=== PATIENT | female | born 1940 | race Caucasian/White ===

== ENCOUNTER 2022-09-23 03:36 | Inpatient (IN) | payer MEDICARE, BC, SELFPAY ==
[2022-09-23] VITALS (54 sets, daily range): BP systolic 103–149; BP diastolic 53–80; PULSE 61–85; RESP 12–36; TEMP 36.9; O2SAT 81–97; BMI 22.4
--- NOTE | 2022-09-23 03:45 | DI.RAD.S_ITS ---
PROCEDURE: XR CHEST 1V INDICATIONS: hypoxia TECHNIQUE: One view of the chest was acquired. COMPARISON: None. FINDINGS: Surgical changes and devices: None. Lungs and pleura: There is pulmonary vascular congestion. Extensive airspace opacities throughout bilateral lung solorzano are seen. No significant pleural effusion or pneumothorax. Mediastinum: Tortuous thoracic aorta is noted. Heart size is enlarged. Bones and chest wall: No suspicious bony lesions. Overlying soft tissues appear unremarkable. IMPRESSION: Finding is suggestive of CHF. Superimposed bilateral multilobar infiltrates cannot be excluded. No significant pleural effusion. No pneumothorax. Dictated by: Chato Chairez M.D. on 09/23/2022 at 9:04 Approved by: Chato Chairez M.D. on 09/23/2022 at 9:04
--- NOTE | 2022-09-23 03:46 | ED_ITS ---
HPI - Altered Mental Status <Merline Reinier, DO - Last Filed: 09/25/22 03:44> General Chief Complaint: Syncope Stated Complaint: unresponsive Time Seen by Provider: 09/23/22 03:45 History of Present Illness HPI narrative: Patient is a 81-year-old female history of stage 4 chronic kidney disease, coronary artery disease, insulin-dependent diabetes presenting today with decreasing mental status and unresponsiveness. Apparently she was started on Bactrim by her son for a UTI last week. She is had some upset stomach a little bit of nausea generally not feeling well. This evening found her heard her get up to go to the bathroom she quickly became unresponsive difficulty breathing EMS reports low O2 but other vitals were normal. She with oxygen she slowly became more awake alert and appropriate. She is currently 85% on room air. She really does not have any complaints. No numbness tingling weakness no chest pain Related Data Home Medications Medication Instructions Recorded Confirmed Imodium 2 mg PO QD-BID 09/23/22 09/23/22 Systane Ultra 1 drp EYE-BOTH TID 09/23/22 09/24/22 amitriptyline 25 mg tablet 50 mg PO ONCE PM 09/23/22 09/23/22 amlodipine 10 mg tablet 10 mg PO DAILY 09/23/22 09/23/22 aspirin 81 mg chewable tablet 81 mg PO DAILY 09/23/22 09/23/22 atorvastatin 80 mg tablet 80 mg PO ONCE PM 09/23/22 09/23/22 brimonidine 0.2 %-timolol 0.5 % 1 drp EYE-RIGHT BID 09/23/22 09/23/22 eye drops clopidogrel 75 mg tablet 75 mg PO DAILY 09/23/22 09/23/22 furosemide 40 mg tablet 40 mg PO Q2D 09/23/22 09/23/22 latanoprost 0.005 % eye drops 1 drp EYE-RIGHT QPM 09/23/22 09/23/22 levothyroxine 75 mcg tablet 75 mcg PO DAILY 09/23/22 09/23/22 melatonin 5 mg tablet 5 mg PO BEDTIME PRN Insomnia 09/23/22 09/23/22 metoprolol succinate 50 mg 50 mg PO BID 09/23/22 09/23/22 tablet,extended release 24 hr Allergies Allergy/AdvReac Type Severity Reaction Status Date / Time ampicillin Allergy Intermediate Hives Verified 09/24/22 05:57 Review of Systems <Merline Hlils DO - Last Filed: 09/25/22 03:44> Review of Systems ROS Unobtainable: All systems reviewed & are unremarkable except as noted in HPI and below Patient History <Merline Hills DO - Last Filed: 09/25/22 03:44> Medical History CAD (coronary artery disease) 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 RESPIRATORY: Coarse breath sounds bilaterally ABDOMEN: Soft, nontender. Normoactive bowel sounds all 4 quadrants. No guarding or rebound. EXTREMITIES: Normal range of motion, no clubbing or edema. Neurovascularly intact NEUROLOGICAL: Alert and oriented x4.Normal gait and speech. Cranial nerves II through XII grossly intact. SKIN: Warm, dry, no laceration, no petechiae, no rashes or lesions. <Shilpa Whitehead MD - Last Filed: 10/12/22 21:50> Initial Vital Signs Initial Vital Signs: Vital Signs Pulse Rate 81 09/23/22 03:42 Pulse Oximetry 85 L 09/23/22 03:42 <Delores Perkins DO - Last Filed: 09/24/22 18:48> Initial Vital Signs Initial Vital Signs: Vital Signs Pulse Rate 81 09/23/22 03:42 Pulse Oximetry 85 L 09/23/22 03:42 Course <Merline Hills DO - Last Filed: 09/25/22 03:44> Orders Ordered: Discontinued Medications Acetaminophen (Acetaminophen 325 Mg Tablet) 650 mg PO NOW ONE Stop: 09/23/22 05:42 Last Admin: 09/23/22 05:47 Dose: 650 mg Documented By: GC Acetaminophen (Acetaminophen 325 Mg Tablet) 650 mg PO Q6H PRN PRN Reason: Fever/Mild Pain (1-3) Amitriptyline HCl (Amitriptyline 25 Mg Tablet) 50 mg PO BEDTIME [facility] Last Admin: 09/24/22 20:13 Dose: 50 mg Documented By: MS Aspirin (Aspirin Ec 81 Mg Tablet) 81 mg PO DAILY [facility] Last Admin: 09/24/22 08:59 Dose: 81 mg Documented By: RB Aspirin (Aspirin 81 Mg Chew Tab) 81 mg PO DAILY [facility] Last Admin: 09/25/22 08:43 Dose: 81 mg Documented By: BT Atorvastatin Calcium (Atorvastatin 20 Mg Tablet) 40 mg PO BEDTIME [facility] Atorvastatin Calcium (Atorvastatin 20 Mg Tablet) 80 mg PO BEDTIME [facility] Last Admin: 09/24/22 20:12 Dose: 80 mg Documented By: MS Brimonidine Tartrate (Brimonidine 0.2% Ophth 5 Ml) 1 drops EYE-RIGHT BID [facility] Last Admin: 09/25/22 08:44 Dose: Not Given Documented By: Admin: 09/24/22 20:14 Dose: 1 drops Documented By: MS Clopidogrel Bisulfate (Clopidogrel 75 Mg Tablet) 75 mg PO DAILY [facility] Last Admin: 09/25/22 08:43 Dose: 75 mg Documented By: Admin: 09/24/22 08:59 Dose: 75 mg Documented By: RB Diphenhydramine HCl (Diphenhydramine 50 Mg/Ml Vial) 25 mg IV NOW ONE Stop: 09/24/22 02:37 Last Admin: 09/24/22 03:29 Dose: 25 mg Documented By: JENELLE Enoxaparin Sodium (Enoxaparin 30 Mg/0.3 Ml Syringe) 30 mg SUBCUT DAILY [facility] Last Admin: 09/25/22 08:44 Dose: Not Given Documented By: BT Furosemide (Furosemide 40 Mg/4 Ml Vial) 40 mg IV 0800,1700 [facility] Last Admin: 09/25/22 08:44 Dose: 40 mg Documented By: Admin: 09/24/22 16:03 Dose: 40 mg Documented By: BT Heparin Sodium (Porcine) (Heparin 5,000 Unit/Ml Vial) 5,000 unit SUBCUT BID [facility] Last Admin: 09/24/22 08:59 Dose: 5,000 unit Documented By: RB Furosemide 60 mg/ Sodium (Chloride) 56 mls @ 112 mls/hr IV NOW ONE Stop: 09/23/22 05:09 Last Infusion: 09/23/22 06:17 Dose: 0 mls/hr Documented By: Admin: 09/23/22 05:34 Dose: 112 mls/hr Documented By: GC Furosemide 60 mg/ Sodium (Chloride) 56 mls @ 112 mls/hr IV NOW ONE Stop: 09/23/22 12:02 Last Infusion: 09/23/22 14:10 Dose: 0 mls/hr Documented By: Admin: 09/23/22 13:22 Dose: 112 mls/hr Documented By: KEYSHA Dextrose (D10w) 1,000 mls @ 100 mls/hr IV CONT PRN PRN Reason: Hypoglycemia Furosemide 100 mg/ Sodium (Chloride) 60 mls @ 120 mls/hr IV NOW ONE Stop: 09/23/22 14:39 Last Infusion: 09/23/22 15:35 Dose: 0 mls/hr Documented By: Admin: 09/23/22 14:57 Dose: 120 mls/hr Documented By: KEYSHA Dextrose (D10w) 1,000 mls @ 100 mls/hr IV CONT PRN PRN Reason: Hypoglycemia Insulin Human Lispro (Insulin Pump) 1 request MISC 0600,1800 [facility] Last Admin: 09/25/22 06:14 Dose: 1 request Documented By: Co-signed By: LUCY Admin: 09/24/22 18:26 Dose: 1 request Documented By: RAQUEL Co-signed By: MARIANGEL Latanoprost (Latanoprost 0.005% Ophth 2.5 Ml) 1 drops EYE-RIGHT BEDTIME [facility] Last Admin: 09/24/22 20:15 Dose: Not Given Documented By: Admin: 09/23/22 21:17 Dose: 1 drops Documented By: KEYSHA Levothyroxine Sodium (Levothyroxine 75 Mcg Tablet) 75 mcg PO DAILY@0600 [facility] Last Admin: 09/25/22 06:19 Dose: 75 mcg Documented By: Admin: 09/24/22 06:25 Dose: 75 mcg Documented By: CHRISTIANO Melatonin (Melatonin 3 Mg Tablet) 3 mg PO BEDTIME [facility] Last Admin: 09/24/22 20:13 Dose: 3 mg Documented By: Admin: 09/23/22 21:17 Dose: 3 mg Documented By: KEYSHA Metoprolol Succinate (Metoprolol Er 50 Mg Tablet) 50 mg PO BID [facility] Last Admin: 09/25/22 08:43 Dose: 50 mg Documented By: Admin: 09/24/22 20:13 Dose: Not Given Documented By: MS Naloxone HCl (Naloxone 0.4 Mg/Ml Vial) 0.2 mg IV Q2MIN PRN PRN Reason: Opiate Reversal Ondansetron HCl (Ondansetron 4 Mg/2 Ml Inj) 4 mg IV Q8H PRN PRN Reason: Nausea And Vomiting Timolol Maleate (Timolol 0.5% Ophth) 1 drops EYE-RIGHT BID [facility] Last Admin: 09/25/22 08:45 Dose: Not Given Documented By: Admin: 09/24/22 20:13 Dose: 1 % Documented By: Vital Signs Vital signs: Vital Signs - 8 hr 09/24/22 11:00 Pulse Rate 86 Respiratory Rate 20 Pulse Oximetry 98 <Shilpa Whitehead MD - Last Filed: 10/12/22 21:50> Orders Ordered: Discontinued Medications Acetaminophen (Acetaminophen 325 Mg Tablet) 650 mg PO NOW ONE Stop: 09/23/22 05:42 Last Admin: 09/23/22 05:47 Dose: 650 mg Documented By: GATO Acetaminophen (Acetaminophen 325 Mg Tablet) 650 mg PO Q6H PRN PRN Reason: Fever/Mild Pain (1-3) Amitriptyline HCl (Amitriptyline 25 Mg Tablet) 50 mg PO BEDTIME [facility] Last Admin: 09/24/22 20:13 Dose: 50 mg Documented By: MS Aspirin (Aspirin Ec 81 Mg Tablet) 81 mg PO DAILY [facility] Last Admin: 09/24/22 08:59 Dose: 81 mg Documented By: RB Aspirin (Aspirin 81 Mg Chew Tab) 81 mg PO DAILY [facility] Last Admin: 09/25/22 08:43 Dose: 81 mg Documented By: RAQUEL Atorvastatin Calcium (Atorvastatin 20 Mg Tablet) 40 mg PO BEDTIME [facility] Atorvastatin Calcium (Atorvastatin 20 Mg Tablet) 80 mg PO BEDTIME [facility] Last Admin: 09/24/22 20:12 Dose: 80 mg Documented By: MS Brimonidine Tartrate (Brimonidine 0.2% Ophth 5 Ml) 1 drops EYE-RIGHT BID [facility] Last Admin: 09/25/22 08:44 Dose: Not Given Documented By: Admin: 09/24/22 20:14 Dose: 1 drops Documented By: MS Clopidogrel Bisulfate (Clopidogrel 75 Mg Tablet) 75 mg PO DAILY [facility] Last Admin: 09/25/22 08:43 Dose: 75 mg Documented By: Admin: 09/24/22 08:59 Dose: 75 mg Documented By: RB Diphenhydramine HCl (Diphenhydramine 50 Mg/Ml Vial) 25 mg IV NOW ONE Stop: 09/24/22 02:37 Last Admin: 09/24/22 03:29 Dose: 25 mg Documented By: JENELLE Enoxaparin Sodium (Enoxaparin 30 Mg/0.3 Ml Syringe) 30 mg SUBCUT DAILY [facility] Last Admin: 09/25/22 08:44 Dose: Not Given Documented By: BT Furosemide (Furosemide 40 Mg/4 Ml Vial) 40 mg IV 0800,1700 [facility] Last Admin: 09/25/22 08:44 Dose: 40 mg Documented By: Admin: 09/24/22 16:03 Dose: 40 mg Documented By: BT Heparin Sodium (Porcine) (Heparin 5,000 Unit/Ml Vial) 5,000 unit SUBCUT BID [facility] Last Admin: 09/24/22 08:59 Dose: 5,000 unit Documented By: RB Furosemide 60 mg/ Sodium (Chloride) 56 mls @ 112 mls/hr IV NOW ONE Stop: 09/23/22 05:09 Last Infusion: 09/23/22 06:17 Dose: 0 mls/hr Documented By: Admin: 09/23/22 05:34 Dose: 112 mls/hr Documented By: GC Furosemide 60 mg/ Sodium (Chloride) 56 mls @ 112 mls/hr IV NOW ONE Stop: 09/23/22 12:02 Last Infusion: 09/23/22 14:10 Dose: 0 mls/hr Documented By: Admin: 09/23/22 13:22 Dose: 112 mls/hr Documented By: KEYSHA Dextrose (D10w) 1,000 mls @ 100 mls/hr IV CONT PRN PRN Reason: Hypoglycemia Furosemide 100 mg/ Sodium (Chloride) 60 mls @ 120 mls/hr IV NOW ONE Stop: 09/23/22 14:39 Last Infusion: 09/23/22 15:35 Dose: 0 mls/hr Documented By: Admin: 09/23/22 14:57 Dose: 120 mls/hr Documented By: KEYSHA Dextrose (D10w) 1,000 mls @ 100 mls/hr IV CONT PRN PRN Reason: Hypoglycemia Insulin Human Lispro (Insulin Pump) 1 request MISC 0600,1800 [facility] Last Admin: 09/25/22 06:14 Dose: 1 request Documented By: Co-signed By: LUCY Admin: 09/24/22 18:26 Dose: 1 request Documented By: RAQUEL Co-signed By: MARIANGEL Latanoprost (Latanoprost 0.005% Ophth 2.5 Ml) 1 drops EYE-RIGHT BEDTIME [facility] Last Admin: 09/24/22 20:15 Dose: Not Given Documented By: Admin: 09/23/22 21:17 Dose: 1 drops Documented By: KEYSHA Levothyroxine Sodium (Levothyroxine 75 Mcg Tablet) 75 mcg PO DAILY@0600 [facility] Last Admin: 09/25/22 06:19 Dose: 75 mcg Documented By: Admin: 09/24/22 06:25 Dose: 75 mcg Documented By: CHRISTIANO Melatonin (Melatonin 3 Mg Tablet) 3 mg PO BEDTIME [facility] Last Admin: 09/24/22 20:13 Dose: 3 mg Documented By: Admin: 09/23/22 21:17 Dose: 3 mg Documented By: KEYSHA Metoprolol Succinate (Metoprolol Er 50 Mg Tablet) 50 mg PO BID [facility] Last Admin: 09/25/22 08:43 Dose: 50 mg Documented By: Admin: 09/24/22 20:13 Dose: Not Given Documented By: Naloxone HCl (Naloxone 0.4 Mg/Ml Vial) 0.2 mg IV Q2MIN PRN PRN Reason: Opiate Reversal Ondansetron HCl (Ondansetron 4 Mg/2 Ml Inj) 4 mg IV Q8H PRN PRN Reason: Nausea And Vomiting Timolol Maleate (Timolol 0.5% Ophth) 1 drops EYE-RIGHT BID [facility] Last Admin: 09/25/22 08:45 Dose: Not Given Documented By: Admin: 09/24/22 20:13 Dose: 1 % Documented By: MS Vital Signs Vital signs: Vital Signs - 8 hr 09/24/22 11:00 Pulse Rate 86 Respiratory Rate 20 Pulse Oximetry 98 <Delores Perkins, - Last Filed: 09/24/22 18:48> Orders Ordered: Discontinued Medications Acetaminophen (Acetaminophen 325 Mg Tablet) 650 mg PO NOW ONE Stop: 09/23/22 05:42 Last Admin: 09/23/22 05:47 Dose: 650 mg Documented By: GC Acetaminophen (Acetaminophen 325 Mg Tablet) 650 mg PO Q6H PRN PRN Reason: Fever/Mild Pain (1-3) Amitriptyline HCl (Amitriptyline 25 Mg Tablet) 50 mg PO BEDTIME [facility] Last Admin: 09/24/22 20:13 Dose: 50 mg Documented By: MS Aspirin (Aspirin Ec 81 Mg Tablet) 81 mg PO DAILY [facility] Last Admin: 09/24/22 08:59 Dose: 81 mg Documented By: RB Aspirin (Aspirin 81 Mg Chew Tab) 81 mg PO DAILY [facility] Last Admin: 09/25/22 08:43 Dose: 81 mg Documented By: BT Atorvastatin Calcium (Atorvastatin 20 Mg Tablet) 40 mg PO BEDTIME [facility] Atorvastatin Calcium (Atorvastatin 20 Mg Tablet) 80 mg PO BEDTIME [facility] Last Admin: 09/24/22 20:12 Dose: 80 mg Documented By: MS Brimonidine Tartrate (Brimonidine 0.2% Ophth 5 Ml) 1 drops EYE-RIGHT BID [facility] Last Admin: 09/25/22 08:44 Dose: Not Given Documented By: Admin: 09/24/22 20:14 Dose: 1 drops Documented By: MS Clopidogrel Bisulfate (Clopidogrel 75 Mg Tablet) 75 mg PO DAILY [facility] Last Admin: 09/25/22 08:43 Dose: 75 mg Documented By: Admin: 09/24/22 08:59 Dose: 75 mg Documented By: RB Diphenhydramine HCl (Diphenhydramine 50 Mg/Ml Vial) 25 mg IV NOW ONE Stop: 09/24/22 02:37 Last Admin: 09/24/22 03:29 Dose: 25 mg Documented By: HNG Enoxaparin Sodium (Enoxaparin 30 Mg/0.3 Ml Syringe) 30 mg SUBCUT DAILY [facility] Last Admin: 09/25/22 08:44 Dose: Not Given Documented By: BT Furosemide (Furosemide 40 Mg/4 Ml Vial) 40 mg IV 0800,1700 [facility] Last Admin: 09/25/22 08:44 Dose: 40 mg Documented By: Admin: 09/24/22 16:03 Dose: 40 mg Documented By: BT Heparin Sodium (Porcine) (Heparin 5,000 Unit/Ml Vial) 5,000 unit SUBCUT BID [facility] Last Admin: 09/24/22 08:59 Dose: 5,000 unit Documented By: RB Furosemide 60 mg/ Sodium (Chloride) 56 mls @ 112 mls/hr IV NOW ONE Stop: 09/23/22 05:09 Last Infusion: 09/23/22 06:17 Dose: 0 mls/hr Documented By: Admin: 09/23/22 05:34 Dose: 112 mls/hr Documented By: GC Furosemide 60 mg/ Sodium (Chloride) 56 mls @ 112 mls/hr IV NOW ONE Stop: 09/23/22 12:02 Last Infusion: 09/23/22 14:10 Dose: 0 mls/hr Documented By: Admin: 09/23/22 13:22 Dose: 112 mls/hr Documented By: KEYSHA Dextrose (D10w) 1,000 mls @ 100 mls/hr IV CONT PRN PRN Reason: Hypoglycemia Furosemide 100 mg/ Sodium (Chloride) 60 mls @ 120 mls/hr IV NOW ONE Stop: 09/23/22 14:39 Last Infusion: 09/23/22 15:35 Dose: 0 mls/hr Documented By: Admin: 09/23/22 14:57 Dose: 120 mls/hr Documented By: KEYSHA Dextrose (D10w) 1,000 mls @ 100 mls/hr IV CONT PRN PRN Reason: Hypoglycemia Insulin Human Lispro (Insulin Pump) 1 request MISC 0600,1800 [facility] Last Admin: 09/25/22 06:14 Dose: 1 request Documented By: MS Co-signed By: VH Admin: 09/24/22 18:26 Dose: 1 request Documented By: RAQUEL Co-signed By: MARIANGEL Latanoprost (Latanoprost 0.005% Ophth 2.5 Ml) 1 drops EYE-RIGHT BEDTIME [facility] Last Admin: 09/24/22 20:15 Dose: Not Given Documented By: Admin: 09/23/22 21:17 Dose: 1 drops Documented By: KEYSHA Levothyroxine Sodium (Levothyroxine 75 Mcg Tablet) 75 mcg PO DAILY@0600 [facility] Last Admin: 09/25/22 06:19 Dose: 75 mcg Documented By: Admin: 09/24/22 06:25 Dose: 75 mcg Documented By: CHRISTIANO Melatonin (Melatonin 3 Mg Tablet) 3 mg PO BEDTIME [facility] Last Admin: 09/24/22 20:13 Dose: 3 mg Documented By: Admin: 09/23/22 21:17 Dose: 3 mg Documented By: KEYSHA Metoprolol Succinate (Metoprolol Er 50 Mg Tablet) 50 mg PO BID [facility] Last Admin: 09/25/22 08:43 Dose: 50 mg Documented By: Admin: 09/24/22 20:13 Dose: Not Given Documented By: Naloxone HCl (Naloxone 0.4 Mg/Ml Vial) 0.2 mg IV Q2MIN PRN PRN Reason: Opiate Reversal Ondansetron HCl (Ondansetron 4 Mg/2 Ml Inj) 4 mg IV Q8H PRN PRN Reason: Nausea And Vomiting Timolol Maleate (Timolol 0.5% Ophth) 1 drops EYE-RIGHT BID [facility] Last Admin: 09/25/22 08:45 Dose: Not Given Documented By: Admin: 09/24/22 20:13 Dose: 1 % Documented By: Vital Signs Vital signs: Vital Signs - 8 hr 09/24/22 11:00 Pulse Rate 86 Respiratory Rate 20 Pulse Oximetry 98 MDM - Altered Mental Status <Merline Hills, DO - Last Filed: 09/25/22 03:44> Lab Data 09/25/22 06:20 09/25/22 06:20 Labs: Lab Results 09/23/22 09/23/22 09/23/22 Range/Units 03:50 03:50 03:50 WBC 8.7 (4.5-11.0) X10^3/uL RBC 2.76 L (4.0-5.2) X10^6/uL Hgb 9.3 L (12.0-16.0) g/dL Hct 26.1 L (36-46) % MCV 94.4 (80-100) fL MCH 33.8 (26-34) PG MCHC 35.8 (30-36) % RDW 12.3 (11.6-14.8) % Plt Count 208 (150-400) X10^3/uL Neut % (Auto) 78.8 H (50-75) % Lymph % (Auto) 9.1 L (25-40) % [place] % (Auto) 10.3 (3-14) % Eos % (Auto) 1.4 L (2-4) % Baso % (Auto) 0.4 (0-2) % Neut # (Auto) 6800 (7706-7886) /uL Lymph # (Auto) 800 L (6573-6614) /uL [place] # (Auto) 900 (0-900) /uL Eos # (Auto) 100 (0-450) /uL Baso # (Auto) 0 (0-100) /uL PT 13.4 H (10.1-12.7) SECONDS INR 1.2 (0.9-1.3) APTT (26-36) SECONDS D-Dimer (<500) ng/ml ABG pH (7.35-7.45) ABG pCO2 (35-45) mmHg ABG pO2 (80-100) mmHg ABG HCO3 (23-27) mmol/L ABG Total CO2 (23-27) mmol/L ABG O2 Saturation (95-100) % ABG Base Excess (-2-3) mmol/L FiO2 Sodium 131 L (137-145) mmol/L Potassium 4.7 (3.4-5.1) mmol/L Chloride 101 (98-107) mmol/L Carbon Dioxide 19 L (22-32) mmol/L BUN 49 H (7-17) mg/dL Creatinine 4.15 H (0.52-1.04) mg/dL Estimated GFR 10 L (>60) mL/min BUN/Creatinine Ratio 11.8 (6-22) Glucose 152 H (80-110) mg/dL Lactate (0.7-2.1) mmol/L Calcium 8.5 (8.4-10.2) mg/dL Magnesium (1.6-2.3) mg/dL Total Bilirubin 0.6 (0.2-1.3) mg/dL AST 37 H (14-36) IU/L ALT 25 (<35) IU/L Alkaline Phosphatase 138 H (38-126) U/L Total Creatine Kinase 113 (30-135) U/L Troponin I 0.018 (0.01-0.034) ng/mL NT-Pro-B Natriuret Pep 8590 H (<450) pg/mL Total Protein 6.5 (6.3-8.2) g/dL Albumin 3.8 (3.5-5.0) g/dL Globulin 2.7 (1.7-4.1) g/dL Albumin/Globulin Ratio 1.4 (1.0-2.8) Procalcitonin 0.15 (<0.5) ng/mL Urine Color Urine Appearance Urine pH (4.5-8.0) Ur Specific [place] (1.000-1.035) Urine Protein (Negative) Urine Glucose (UA) (Negative) g/dL Urine Ketones (NEGATIVE) Urine Occult Blood (Negative) Urine Nitrate (Negative) Urine Bilirubin (NEGATIVE) Urine Urobilinogen (0.2) E.U./dL Ur Leukocyte Esterase (NEGATIVE) Urine RBC (0-5/HPF) Urine WBC (0-5/HPF) Ur Squamous Epith Cells (0-5/HPF) Urine Bacteria (None) Ur Culture Indicated? Chlamy pneumoniae PCR (Not Detect) Adenovirus (PCR) (Not Detect) B. pertussis DNA (PCR) (Not Detecte) B.parapertussis DNA PCR (Not Detecte) Coronavirus OC43 (PCR) (Not Detect) Coronavirus HKU1 (PCR) (Not Detect) Coronavirus 229E (PCR) (Not Detect) SARS-CoV-2 (PCR) (Not Detecte) Coronavirus NL63 (PCR) (Not Detect) Human Metapneumovir PCR (Not Detect) Influenza Type A (PCR) (Not Detect) Influenza Type B (PCR) (Not Detect) M. pneumoniae (PCR) (Not Detect) Parainfluenza 1 (PCR) (Not Detect) Parainfluenza 2 (PCR) (Not Detect) Parainfluenza 3 (PCR) (Not Detect) Parainfluenza 4 (PCR) (Not Detect) RSV (PCR) (Not Detect) Entero/Rhino (PCR) (Not Detect) 09/23/22 09/23/22 09/23/22 Range/Units 03:50 03:50 03:50 WBC (4.5-11.0) X10^3/uL RBC (4.0-5.2) X10^6/uL Hgb (12.0-16.0) g/dL Hct (36-46) % MCV (80-100) fL MCH (26-34) PG MCHC (30-36) % RDW (11.6-14.8) % Plt Count (150-400) X10^3/uL Neut % (Auto) (50-75) % Lymph % (Auto) (25-40) % [place] % (Auto) (3-14) % Eos % (Auto) (2-4) % Baso % (Auto) (0-2) % Neut # (Auto) (1465-9431) /uL Lymph # (Auto) (8917-3450) /uL [place] # (Auto) (0-900) /uL Eos # (Auto) (0-450) /uL Baso # (Auto) (0-100) /uL PT (10.1-12.7) SECONDS INR (0.9-1.3) APTT 32 (26-36) SECONDS D-Dimer 1062 H (<500) ng/ml ABG pH (7.35-7.45) ABG pCO2 (35-45) mmHg ABG pO2 (80-100) mmHg ABG HCO3 (23-27) mmol/L ABG Total CO2 (23-27) mmol/L ABG O2 Saturation (95-100) % ABG Base Excess (-2-3) mmol/L FiO2 Sodium (137-145) mmol/L Potassium (3.4-5.1) mmol/L Chloride (98-107) mmol/L Carbon Dioxide (22-32) mmol/L BUN (7-17) mg/dL Creatinine (0.52-1.04) mg/dL Estimated GFR (>60) mL/min BUN/Creatinine Ratio (6-22) Glucose (80-110) mg/dL Lactate 1.2 (0.7-2.1) mmol/L Calcium (8.4-10.2) mg/dL Magnesium (1.6-2.3) mg/dL Total Bilirubin (0.2-1.3) mg/dL AST (14-36) IU/L ALT (<35) IU/L Alkaline Phosphatase (38-126) U/L Total Creatine Kinase (30-135) U/L Troponin I (0.01-0.034) ng/mL NT-Pro-B Natriuret Pep (<450) pg/mL Total Protein (6.3-8.2) g/dL Albumin (3.5-5.0) g/dL Globulin (1.7-4.1) g/dL Albumin/Globulin Ratio (1.0-2.8) Procalcitonin (<0.5) ng/mL Urine Color Urine Appearance Urine pH (4.5-8.0) Ur Specific [place] (1.000-1.035) Urine Protein (Negative) Urine Glucose (UA) (Negative) g/dL Urine Ketones (NEGATIVE) Urine Occult Blood (Negative) Urine Nitrate (Negative) Urine Bilirubin (NEGATIVE) Urine Urobilinogen (0.2) E.U./dL Ur Leukocyte Esterase (NEGATIVE) Urine RBC (0-5/HPF) Urine WBC (0-5/HPF) Ur Squamous Epith Cells (0-5/HPF) Urine Bacteria (None) Ur Culture Indicated? Chlamy pneumoniae PCR (Not Detect) Adenovirus (PCR) (Not Detect) B. pertussis DNA (PCR) (Not Detecte) B.parapertussis DNA PCR (Not Detecte) Coronavirus OC43 (PCR) (Not Detect) Coronavirus HKU1 (PCR) (Not Detect) Coronavirus 229E (PCR) (Not Detect) SARS-CoV-2 (PCR) (Not Detecte) Coronavirus NL63 (PCR) (Not Detect) Human Metapneumovir PCR (Not Detect) Influenza Type A (PCR) (Not Detect) Influenza Type B (PCR) (Not Detect) M. pneumoniae (PCR) (Not Detect) Parainfluenza 1 (PCR) (Not Detect) Parainfluenza 2 (PCR) (Not Detect) Parainfluenza 3 (PCR) (Not Detect) Parainfluenza 4 (PCR) (Not Detect) RSV (PCR) (Not Detect) Entero/Rhino (PCR) (Not Detect) 09/23/22 09/23/22 09/23/22 Range/Units 04:00 04:15 05:22 WBC (4.5-11.0) X10^3/uL RBC (4.0-5.2) X10^6/uL Hgb (12.0-16.0) g/dL Hct (36-46) % MCV (80-100) fL MCH (26-34) PG MCHC (30-36) % RDW (11.6-14.8) % Plt Count (150-400) X10^3/uL Neut % (Auto) (50-75) % Lymph % (Auto) (25-40) % [place] % (Auto) (3-14) % Eos % (Auto) (2-4) % Baso % (Auto) (0-2) % Neut # (Auto) (7031-3261) /uL Lymph # (Auto) (3183-1094) /uL [place] # (Auto) (0-900) /uL Eos # (Auto) (0-450) /uL Baso # (Auto) (0-100) /uL PT (10.1-12.7) SECONDS INR (0.9-1.3) APTT (26-36) SECONDS D-Dimer (<500) ng/ml ABG pH 7.36 (7.35-7.45) ABG pCO2 32.6 L (35-45) mmHg ABG pO2 50 L (80-100) mmHg ABG HCO3 18 L (23-27) mmol/L ABG Total CO2 19 L (23-27) mmol/L ABG O2 Saturation 84 L* (95-100) % ABG Base Excess -7.0 L (-2-3) mmol/L FiO2 50 Sodium (137-145) mmol/L Potassium (3.4-5.1) mmol/L Chloride (98-107) mmol/L Carbon Dioxide (22-32) mmol/L BUN (7-17) mg/dL Creatinine (0.52-1.04) mg/dL Estimated GFR (>60) mL/min BUN/Creatinine Ratio (6-22) Glucose (80-110) mg/dL Lactate (0.7-2.1) mmol/L Calcium (8.4-10.2) mg/dL Magnesium (1.6-2.3) mg/dL Total Bilirubin (0.2-1.3) mg/dL AST (14-36) IU/L ALT (<35) IU/L Alkaline Phosphatase (38-126) U/L Total Creatine Kinase (30-135) U/L Troponin I (0.01-0.034) ng/mL NT-Pro-B Natriuret Pep (<450) pg/mL Total Protein (6.3-8.2) g/dL Albumin (3.5-5.0) g/dL Globulin (1.7-4.1) g/dL Albumin/Globulin Ratio (1.0-2.8) Procalcitonin (<0.5) ng/mL Urine Color Yellow Urine Appearance Clear Urine pH 5.5 (4.5-8.0) Ur Specific [place] 1.015 (1.000-1.035) Urine Protein Negative (Negative) Urine Glucose (UA) Negative (Negative) g/dL Urine Ketones Negative (NEGATIVE) Urine Occult Blood Negative (Negative) Urine Nitrate Negative (Negative) Urine Bilirubin Negative (NEGATIVE) Urine Urobilinogen 0.2 (0.2) E.U./dL Ur Leukocyte Esterase Negative (NEGATIVE) Urine RBC None seen (0-5/HPF) Urine WBC None seen (0-5/HPF) Ur Squamous Epith Cells 0-1 /hpf (0-5/HPF) Urine Bacteria None seen (None) Ur Culture Indicated? Cult not indicated Chlamy pneumoniae PCR Not detected (Not Detect) Adenovirus (PCR) Not detected (Not Detect) B. pertussis DNA (PCR) Not detected (Not Detecte) B.parapertussis DNA PCR Not detected (Not Detecte) Coronavirus OC43 (PCR) Not detected (Not Detect) Coronavirus HKU1 (PCR) Not detected (Not Detect) Coronavirus 229E (PCR) Not detected (Not Detect) SARS-CoV-2 (PCR) Not detected (Not Detecte) Coronavirus NL63 (PCR) Not detected (Not Detect) Human Metapneumovir PCR Not detected (Not Detect) Influenza Type A (PCR) Not detected (Not Detect) Influenza Type B (PCR) Not detected (Not Detect) M. pneumoniae (PCR) Not detected (Not Detect) Parainfluenza 1 (PCR) Not detected (Not Detect) Parainfluenza 2 (PCR) Not detected (Not Detect) Parainfluenza 3 (PCR) Not detected (Not Detect) Parainfluenza 4 (PCR) Not detected (Not Detect) RSV (PCR) Not detected (Not Detect) Entero/Rhino (PCR) Not detected (Not Detect) 09/23/22 09/23/22 09/23/22 Range/Units 16:20 16:20 16:20 WBC 5.8 (4.5-11.0) X10^3/uL RBC 2.66 L (4.0-5.2) X10^6/uL Hgb 8.9 L (12.0-16.0) g/dL Hct 25.0 L (36-46) % MCV 93.9 (80-100) fL MCH 33.5 (26-34) PG MCHC 35.6 (30-36) % RDW 12.4 (11.6-14.8) % Plt Count 184 (150-400) X10^3/uL Neut % (Auto) 75.7 H (50-75) % Lymph % (Auto) 11.2 L (25-40) % [place] % (Auto) 12.0 (3-14) % Eos % (Auto) 0.6 L (2-4) % Baso % (Auto) 0.5 (0-2) % Neut # (Auto) 4400 (4041-8058) /uL Lymph # (Auto) 700 L (9539-3692) /uL [place] # (Auto) 700 (0-900) /uL Eos # (Auto) 0 (0-450) /uL Baso # (Auto) 0 (0-100) /uL PT (10.1-12.7) SECONDS INR (0.9-1.3) APTT (26-36) SECONDS D-Dimer (<500) ng/ml ABG pH (7.35-7.45) ABG pCO2 (35-45) mmHg ABG pO2 (80-100) mmHg ABG HCO3 (23-27) mmol/L ABG Total CO2 (23-27) mmol/L ABG O2 Saturation (95-100) % ABG Base Excess (-2-3) mmol/L FiO2 Sodium 132 L (137-145) mmol/L Potassium 4.4 (3.4-5.1) mmol/L Chloride 100 (98-107) mmol/L Carbon Dioxide 22 (22-32) mmol/L BUN 53 H (7-17) mg/dL Creatinine 4.14 H (0.52-1.04) mg/dL Estimated GFR 10 L (>60) mL/min BUN/Creatinine Ratio 12.8 (6-22) Glucose 168 H (80-110) mg/dL Lactate (0.7-2.1) mmol/L Calcium 8.4 (8.4-10.2) mg/dL Magnesium 2.3 (1.6-2.3) mg/dL Total Bilirubin 0.4 (0.2-1.3) mg/dL AST 34 (14-36) IU/L ALT 25 (<35) IU/L Alkaline Phosphatase 113 (38-126) U/L Total Creatine Kinase (30-135) U/L Troponin I (0.01-0.034) ng/mL NT-Pro-B Natriuret Pep (<450) pg/mL Total Protein 6.4 (6.3-8.2) g/dL Albumin 3.6 (3.5-5.0) g/dL Globulin 2.8 (1.7-4.1) g/dL Albumin/Globulin Ratio 1.3 (1.0-2.8) Procalcitonin (<0.5) ng/mL Urine Color Urine Appearance Urine pH (4.5-8.0) Ur Specific [place] (1.000-1.035) Urine Protein (Negative) Urine Glucose (UA) (Negative) g/dL Urine Ketones (NEGATIVE) Urine Occult Blood (Negative) Urine Nitrate (Negative) Urine Bilirubin (NEGATIVE) Urine Urobilinogen (0.2) E.U./dL Ur Leukocyte Esterase (NEGATIVE) Urine RBC (0-5/HPF) Urine WBC (0-5/HPF) Ur Squamous Epith Cells (0-5/HPF) Urine Bacteria (None) Ur Culture Indicated? Chlamy pneumoniae PCR (Not Detect) Adenovirus (PCR) (Not Detect) B. pertussis DNA (PCR) (Not Detecte) B.parapertussis DNA PCR (Not Detecte) Coronavirus OC43 (PCR) (Not Detect) Coronavirus HKU1 (PCR) (Not Detect) Coronavirus 229E (PCR) (Not Detect) SARS-CoV-2 (PCR) (Not Detecte) Coronavirus NL63 (PCR) (Not Detect) Human Metapneumovir PCR (Not Detect) Influenza Type A (PCR) (Not Detect) Influenza Type B (PCR) (Not Detect) M. pneumoniae (PCR) (Not Detect) Parainfluenza 1 (PCR) (Not Detect) Parainfluenza 2 (PCR) (Not Detect) Parainfluenza 3 (PCR) (Not Detect) Parainfluenza 4 (PCR) (Not Detect) RSV (PCR) (Not Detect) Entero/Rhino (PCR) (Not Detect) 09/24/22 09/24/22 09/24/22 Range/Units 06:04 06:04 06:04 WBC 4.8 (4.5-11.0) X10^3/uL RBC 2.96 L (4.0-5.2) X10^6/uL Hgb 10.0 L (12.0-16.0) g/dL Hct 27.8 L (36-46) % MCV 94.1 (80-100) fL MCH 33.8 (26-34) PG MCHC 35.9 (30-36) % RDW 12.3 (11.6-14.8) % Plt Count 210 (150-400) X10^3/uL Neut % (Auto) 66.6 (50-75) % Lymph % (Auto) 16.7 L (25-40) % [place] % (Auto) 11.5 (3-14) % Eos % (Auto) 4.7 H (2-4) % Baso % (Auto) 0.5 (0-2) % Neut # (Auto) 3200 (4200-2794) /uL Lymph # (Auto) 800 L (2469-7291) /uL [place] # (Auto) 600 (0-900) /uL Eos # (Auto) 200 (0-450) /uL Baso # (Auto) 0 (0-100) /uL PT (10.1-12.7) SECONDS INR (0.9-1.3) APTT (26-36) SECONDS D-Dimer (<500) ng/ml ABG pH (7.35-7.45) ABG pCO2 (35-45) mmHg ABG pO2 (80-100) mmHg ABG HCO3 (23-27) mmol/L ABG Total CO2 (23-27) mmol/L ABG O2 Saturation (95-100) % ABG Base Excess (-2-3) mmol/L FiO2 Sodium 134 L (137-145) mmol/L Potassium 3.9 (3.4-5.1) mmol/L Chloride 99 (98-107) mmol/L Carbon Dioxide 23 (22-32) mmol/L BUN 53 H (7-17) mg/dL Creatinine 3.92 H (0.52-1.04) mg/dL Estimated GFR 11 L (>60) mL/min BUN/Creatinine Ratio 13.5 (6-22) Glucose 105 (80-110) mg/dL Lactate (0.7-2.1) mmol/L Calcium 8.5 (8.4-10.2) mg/dL Magnesium (1.6-2.3) mg/dL Total Bilirubin 0.5 (0.2-1.3) mg/dL AST 37 H (14-36) IU/L ALT 26 (<35) IU/L Alkaline Phosphatase 114 (38-126) U/L Total Creatine Kinase (30-135) U/L Troponin I 0.061 H (0.01-0.034) ng/mL NT-Pro-B Natriuret Pep 8590 H (<450) pg/mL Total Protein 6.6 (6.3-8.2) g/dL Albumin 3.7 (3.5-5.0) g/dL Globulin 2.9 (1.7-4.1) g/dL Albumin/Globulin Ratio 1.3 (1.0-2.8) Procalcitonin (<0.5) ng/mL Urine Color Urine Appearance Urine pH (4.5-8.0) Ur Specific [place] (1.000-1.035) Urine Protein (Negative) Urine Glucose (UA) (Negative) g/dL Urine Ketones (NEGATIVE) Urine Occult Blood (Negative) Urine Nitrate (Negative) Urine Bilirubin (NEGATIVE) Urine Urobilinogen (0.2) E.U./dL Ur Leukocyte Esterase (NEGATIVE) Urine RBC (0-5/HPF) Urine WBC (0-5/HPF) Ur Squamous Epith Cells (0-5/HPF) Urine Bacteria (None) Ur Culture Indicated? Chlamy pneumoniae PCR (Not Detect) Adenovirus (PCR) (Not Detect) B. pertussis DNA (PCR) (Not Detecte) B.parapertussis DNA PCR (Not Detecte) Coronavirus OC43 (PCR) (Not Detect) Coronavirus HKU1 (PCR) (Not Detect) Coronavirus 229E (PCR) (Not Detect) SARS-CoV-2 (PCR) (Not Detecte) Coronavirus NL63 (PCR) (Not Detect) Human Metapneumovir PCR (Not Detect) Influenza Type A (PCR) (Not Detect) Influenza Type B (PCR) (Not Detect) M. pneumoniae (PCR) (Not Detect) Parainfluenza 1 (PCR) (Not Detect) Parainfluenza 2 (PCR) (Not Detect) Parainfluenza 3 (PCR) (Not Detect) Parainfluenza 4 (PCR) (Not Detect) RSV (PCR) (Not Detect) Entero/Rhino (PCR) (Not Detect) 09/24/22 Range/Units 09:50 WBC (4.5-11.0) X10^3/uL RBC (4.0-5.2) X10^6/uL Hgb (12.0-16.0) g/dL Hct (36-46) % MCV (80-100) fL MCH (26-34) PG MCHC (30-36) % RDW (11.6-14.8) % Plt Count (150-400) X10^3/uL Neut % (Auto) (50-75) % Lymph % (Auto) (25-40) % [place] % (Auto) (3-14) % Eos % (Auto) (2-4) % Baso % (Auto) (0-2) % Neut # (Auto) (9749-4429) /uL Lymph # (Auto) (3792-4279) /uL [place] # (Auto) (0-900) /uL Eos # (Auto) (0-450) /uL Baso # (Auto) (0-100) /uL PT (10.1-12.7) SECONDS INR (0.9-1.3) APTT (26-36) SECONDS D-Dimer (<500) ng/ml ABG pH (7.35-7.45) ABG pCO2 (35-45) mmHg ABG pO2 (80-100) mmHg ABG HCO3 (23-27) mmol/L ABG Total CO2 (23-27) mmol/L ABG O2 Saturation (95-100) % ABG Base Excess (-2-3) mmol/L FiO2 Sodium (137-145) mmol/L Potassium (3.4-5.1) mmol/L Chloride (98-107) mmol/L Carbon Dioxide (22-32) mmol/L BUN (7-17) mg/dL Creatinine (0.52-1.04) mg/dL Estimated GFR (>60) mL/min BUN/Creatinine Ratio (6-22) Glucose (80-110) mg/dL Lactate (0.7-2.1) mmol/L Calcium (8.4-10.2) mg/dL Magnesium (1.6-2.3) mg/dL Total Bilirubin (0.2-1.3) mg/dL AST (14-36) IU/L ALT (<35) IU/L Alkaline Phosphatase (38-126) U/L Total Creatine Kinase (30-135) U/L Troponin I 0.052 H (0.01-0.034) ng/mL NT-Pro-B Natriuret Pep (<450) pg/mL Total Protein (6.3-8.2) g/dL Albumin (3.5-5.0) g/dL Globulin (1.7-4.1) g/dL Albumin/Globulin Ratio (1.0-2.8) Procalcitonin (<0.5) ng/mL Urine Color Urine Appearance Urine pH (4.5-8.0) Ur Specific [place] (1.000-1.035) Urine Protein (Negative) Urine Glucose (UA) (Negative) g/dL Urine Ketones (NEGATIVE) Urine Occult Blood (Negative) Urine Nitrate (Negative) Urine Bilirubin (NEGATIVE) Urine Urobilinogen (0.2) E.U./dL Ur Leukocyte Esterase (NEGATIVE) Urine RBC (0-5/HPF) Urine WBC (0-5/HPF) Ur Squamous Epith Cells (0-5/HPF) Urine Bacteria (None) Ur Culture Indicated? Chlamy pneumoniae PCR (Not Detect) Adenovirus (PCR) (Not Detect) B. pertussis DNA (PCR) (Not Detecte) B.parapertussis DNA PCR (Not Detecte) Coronavirus OC43 (PCR) (Not Detect) Coronavirus HKU1 (PCR) (Not Detect) Coronavirus 229E (PCR) (Not Detect) SARS-CoV-2 (PCR) (Not Detecte) Coronavirus NL63 (PCR) (Not Detect) Human Metapneumovir PCR (Not Detect) Influenza Type A (PCR) (Not Detect) Influenza Type B (PCR) (Not Detect) M. pneumoniae (PCR) (Not Detect) Parainfluenza 1 (PCR) (Not Detect) Parainfluenza 2 (PCR) (Not Detect) Parainfluenza 3 (PCR) (Not Detect) Parainfluenza 4 (PCR) (Not Detect) RSV (PCR) (Not Detect) Entero/Rhino (PCR) (Not Detect) Point of Care Testing Glucose POC [address] scan - head: Radiologist's Impression: Preliminary report: No acute intracranial pathology. Cerebral volume loss with chronic microvascular gliosis in the periventricular white matter Chest x-ray: Radiologist's Impression: Findings favor congestive heart failure with possible superimposed pneumonia ECG Data Interpretation: Sinus rhythm rate 80 SD interval 168 QRS [address] changes MDM Narrative Medical decision making narrative: Patient 81-year-old female presenting today with decreasing mental status and hypoxia. She has not had any shortness of breath or cough previously. Sudden onset of hypoxia concern for possible pulmonary edema with history of coronary artery disease and congestive heart failure. They are visiting from [place] drove up in a motor home they have been here for about month another possibility is pulmonary embolism however due to CKD creatinine is 4.1 patient and family quite adamant she can not have any contrast. BNP is elevated at 8500. She actually is not significantly tachypneic but does have coarse sounds bilaterally ABG does show a PaO2 of 50 on 6 L non-rebreather she is only on the 6 L for couple minutes previously she was 15 L. Clearly hypoxic. She is given Lasix and Hill catheter. She has started urinating and responding to Lasix. D-dimer is elevated however after further information reports that she has an IVC filter, I think pulmonary embolism is less likely Spoke with Dr. Hyatt in regards to patient kidney disease creatinine of 4 which is baseline for her difficulty breathing on high flow recommends patient be transferred for further evaluation and nephrology available. Signed out to Dr. Whitehead September 23, 2022, 7:00 a.m., s/w dr hills, patient will need to be transferred, patient on high flow. Needs nephrology services. Patient was placed on Bactrim last dose was yesterday. This could be contributory to her acute on chronic naomie al failure. 9:00 a.m.. Spoke with patient and . They do understand need for transfer. Needs higher level of care Consult: 12:00 p.m.. I spoke with Dr. Mazariegos, nephrology with [facility], I reviewed laboratory studies and kidney function. He feels the Bactrim has affected the kidney function however not causing kidney failure. Overall he states the renal function is reassuring. He recommends continue Lasix 60 mg every 6 hours. Until able to wean off of high-flow. 2:43 p.m.. Spoke with Nephrology Services, Edith weeks, Dr. Ley, at this time she does not feel patient needs to be transferred. The renal function to her is reassuring. After diuresis and patient is providing urine, no dialysis indicated. She recommends on top of the 120 mg already given today of Lasix, give another 100 mg now IV. For a total of 220 mg. She recommends giving Lasix 100 mg every 8 hours 5:[address] Hyatt, hospitalist here at this hospital, at this time there is no significant change was renal function is not worsening. I have reviewed with to nephrology services and no indication transfer or need dialysis. She recommends echocardiogram continue diuresis tonight and if can wean off of high-flow then tomorrow may need/be able to admit here. 6:00 p.m.. Charley: Sign out to Dr Hills, at this time no receiving Hospital but on waiting list. Nephrology Services contacted and no need for dialysis or transfer. I have spoken with hospitalist here for treatment plan 6:[address] [facility] Dr. Sen, she does not feel that patient needs to be transferred. Does not need dialysis. Agrees patient can have Lasix 100 mg every [address] Hills-patient signed out to me by Dr. Hsu. Multiple nephrologists has been spoken to and consulted today none of which state that patient needs to be transferred. In fact 1 recommended high dose Lasix which she is responding to. She is now been taken off high-flow and on nasal cannula. Electrolyte seem to be stable. Blood work this morning is actually improved creatinine of 3.92 previously 4.1. Otherwise stable. Patient signed out to Dr. Perkins with hopes of admitting here after being refused by multiple nephrologists in hospitals yesterday 09/24/22 Andrewsk: This is a 81-year-old female with history of chronic kidney disease not on dialysis still makes urine. 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 Patient states she is feeling improved from the prior days. She had a little shortness of breath yesterday she denies any chest pain or pressure, she has no shortness of breath today. She denies any recent fevers. She had some nausea and vomiting couple days before states she would had a UTI and thought that that was the cause. Patient denies any urinary symptoms. No abdominal back or flank pain. She does have chronic back pain. Patient denies any swelling of her extremities she denies any fevers chills or infectious symptoms currently. Patient states she is had cholecystectomy, hysterectomy, IVC filter placed after getting a blood clot after breaking her leg and then breaking her other leg later and requiring surgery. She has had heart attack in October she states she is on an aspirin 81 mg daily,. She might also be on Plavix and she takes medication for her heart, water pill, thyroid and insulin. Patient was on high-flow initially has been weaned down to 3 L. prior emergency physicians attempted to admit her but were asked to talk to Nephrology 3 different cloth shearing supervisor reportedly recommended high-dose Lasix, patient did have some improvement over the last 30 hours in her renal function, electrolytes are appropriate. Patient troponin BNP repeated, troponins indeterminate BNP is the same. Patient's chest x-ray repeated appear significantly improved from arr ival. Suspect more fluid overload at this time. Reviewed patient's home medications, she has her insulin pump on, continue with Accu-Cheks q.a.c. and HS, she is receiving her Plavix but not aspirin, medications were reviewed we will continue to hold her amlodipine and metoprolol this time. Patient did have echo this morning awaiting results. Patient case was discussed with Dr. Boss hospitalist service, he would like echo result before accepting and if significant change may still need to do transfer. If not we will decide if CT chest high-resolution is appropriate or not. Did review dependent on echo results starting antibiotics and DVT prophylaxis recommended heparin SC. Discussed would like for consult even if patient is being transferred. Echo shows EF 60% normal left ventricle mild anteroseptal wall akinesis mild inferoseptal wall hypokinesis. Patient's repeat trope for the 3rd is slightly trending down words chest x-ray significantly improved. Spoke with Dr. Alex blount. <Shilpa Whitehead MD - Last Filed: 10/12/22 21:50> Lab Data Labs: Lab Results 09/23/22 09/23/22 09/23/22 Range/Units 03:50 03:50 03:50 WBC 8.7 (4.5-11.0) X10^3/uL RBC 2.76 L (4.0-5.2) X10^6/uL Hgb 9.3 L (12.0-16.0) g/dL Hct 26.1 L (36-46) % MCV 94.4 (80-100) fL MCH 33.8 (26-34) PG MCHC 35.8 (30-36) % RDW 12.3 (11.6-14.8) % Plt Count 208 (150-400) X10^3/uL Neut % (Auto) 78.8 H (50-75) % Lymph % (Auto) 9.1 L (25-40) % [place] % (Auto) 10.3 (3-14) % Eos % (Auto) 1.4 L (2-4) % Baso % (Auto) 0.4 (0-2) % Neut # (Auto) 6800 (3891-3887) /uL Lymph # (Auto) 800 L (3465-8663) /uL [place] # (Auto) 900 (0-900) /uL Eos # (Auto) 100 (0-450) /uL Baso # (Auto) 0 (0-100) /uL PT 13.4 H (10.1-12.7) SECONDS INR 1.2 (0.9-1.3) APTT (26-36) SECONDS D-Dimer (<500) ng/ml ABG pH (7.35-7.45) ABG pCO2 (35-45) mmHg ABG pO2 (80-100) mmHg ABG HCO3 (23-27) mmol/L ABG Total CO2 (23-27) mmol/L ABG O2 Saturation (95-100) % ABG Base Excess (-2-3) mmol/L FiO2 Sodium 131 L (137-145) mmol/L Potassium 4.7 (3.4-5.1) mmol/L Chloride 101 (98-107) mmol/L Carbon Dioxide 19 L (22-32) mmol/L BUN 49 H (7-17) mg/dL Creatinine 4.15 H (0.52-1.04) mg/dL Estimated GFR 10 L (>60) mL/min BUN/Creatinine Ratio 11.8 (6-22) Glucose 152 H (80-110) mg/dL Lactate (0.7-2.1) mmol/L Calcium 8.5 (8.4-10.2) mg/dL Magnesium (1.6-2.3) mg/dL Total Bilirubin 0.6 (0.2-1.3) mg/dL AST 37 H (14-36) IU/L ALT 25 (<35) IU/L Alkaline Phosphatase 138 H (38-126) U/L Total Creatine Kinase 113 (30-135) U/L Troponin I 0.018 (0.01-0.034) ng/mL NT-Pro-B Natriuret Pep 8590 H (<450) pg/mL Total Protein 6.5 (6.3-8.2) g/dL Albumin 3.8 (3.5-5.0) g/dL Globulin 2.7 (1.7-4.1) g/dL Albumin/Globulin Ratio 1.4 (1.0-2.8) Procalcitonin 0.15 (<0.5) ng/mL Urine Color Urine Appearance Urine pH (4.5-8.0) Ur Specific [place] (1.000-1.035) Urine Protein (Negative) Urine Glucose (UA) (Negative) g/dL Urine Ketones (NEGATIVE) Urine Occult Blood (Negative) Urine Nitrate (Negative) Urine Bilirubin (NEGATIVE) Urine Urobilinogen (0.2) E.U./dL Ur Leukocyte Esterase (NEGATIVE) Urine RBC (0-5/HPF) Urine WBC (0-5/HPF) Ur Squamous Epith Cells (0-5/HPF) Urine Bacteria (None) Ur Culture Indicated? Chlamy pneumoniae PCR (Not Detect) Adenovirus (PCR) (Not Detect) B. pertussis DNA (PCR) (Not Detecte) B.parapertussis DNA PCR (Not Detecte) Coronavirus OC43 (PCR) (Not Detect) Coronavirus HKU1 (PCR) (Not Detect) Coronavirus 229E (PCR) (Not Detect) SARS-CoV-2 (PCR) (Not Detecte) Coronavirus NL63 (PCR) (Not Detect) Human Metapneumovir PCR (Not Detect) Influenza Type A (PCR) (Not Detect) Influenza Type B (PCR) (Not Detect) M. pneumoniae (PCR) (Not Detect) Parainfluenza 1 (PCR) (Not Detect) Parainfluenza 2 (PCR) (Not Detect) Parainfluenza 3 (PCR) (Not Detect) Parainfluenza 4 (PCR) (Not Detect) RSV (PCR) (Not Detect) Entero/Rhino (PCR) (Not Detect) 09/23/22 09/23/22 09/23/22 Range/Units 03:50 03:50 03:50 WBC (4.5-11.0) X10^3/uL RBC (4.0-5.2) X10^6/uL Hgb (12.0-16.0) g/dL Hct (36-46) % MCV (80-100) fL MCH (26-34) PG MCHC (30-36) % RDW (11.6-14.8) % Plt Count (150-400) X10^3/uL Neut % (Auto) (50-75) % Lymph % (Auto) (25-40) % [place] % (Auto) (3-14) % Eos % (Auto) (2-4) % Baso % (Auto) (0-2) % Neut # (Auto) (2380-5009) /uL Lymph # (Auto) (5580-0127) /uL [place] # (Auto) (0-900) /uL Eos # (Auto) (0-450) /uL Baso # (Auto) (0-100) /uL PT (10.1-12.7) SECONDS INR (0.9-1.3) APTT 32 (26-36) SECONDS D-Dimer 1062 H (<500) ng/ml ABG pH (7.35-7.45) ABG pCO2 (35-45) mmHg ABG pO2 (80-100) mmHg ABG HCO3 (23-27) mmol/L ABG Total CO2 (23-27) mmol/L ABG O2 Saturation (95-100) % ABG Base Excess (-2-3) mmol/L FiO2 Sodium (137-145) mmol/L Potassium (3.4-5.1) mmol/L Chloride (98-107) mmol/L Carbon Dioxide (22-32) mmol/L BUN (7-17) mg/dL Creatinine (0.52-1.04) mg/dL Estimated GFR (>60) mL/min BUN/Creatinine Ratio (6-22) Glucose (80-110) mg/dL Lactate 1.2 (0.7-2.1) mmol/L Calcium (8.4-10.2) mg/dL Magnesium (1.6-2.3) mg/dL Total Bilirubin (0.2-1.3) mg/dL AST (14-36) IU/L ALT (<35) IU/L Alkaline Phosphatase (38-126) U/L Total Creatine Kinase (30-135) U/L Troponin I (0.01-0.034) ng/mL NT-Pro-B Natriuret Pep (<450) pg/mL Total Protein (6.3-8.2) g/dL Albumin (3.5-5.0) g/dL Globulin (1.7-4.1) g/dL Albumin/Globulin Ratio (1.0-2.8) Procalcitonin (<0.5) ng/mL Urine Color Urine Appearance Urine pH (4.5-8.0) Ur Specific [place] (1.000-1.035) Urine Protein (Negative) Urine Glucose (UA) (Negative) g/dL Urine Ketones (NEGATIVE) Urine Occult Blood (Negative) Urine Nitrate (Negative) Urine Bilirubin (NEGATIVE) Urine Urobilinogen (0.2) E.U./dL Ur Leukocyte Esterase (NEGATIVE) Urine RBC (0-5/HPF) Urine WBC (0-5/HPF) Ur Squamous Epith Cells (0-5/HPF) Urine Bacteria (None) Ur Culture Indicated? Chlamy pneumoniae PCR (Not Detect) Adenovirus (PCR) (Not Detect) B. pertussis DNA (PCR) (Not Detecte) B.parapertussis DNA PCR (Not Detecte) Coronavirus OC43 (PCR) (Not Detect) Coronavirus HKU1 (PCR) (Not Detect) Coronavirus 229E (PCR) (Not Detect) SARS-CoV-2 (PCR) (Not Detecte) Coronavirus NL63 (PCR) (Not Detect) Human Metapneumovir PCR (Not Detect) Influenza Type A (PCR) (Not Detect) Influenza Type B (PCR) (Not Detect) M. pneumoniae (PCR) (Not Detect) Parainfluenza 1 (PCR) (Not Detect) Parainfluenza 2 (PCR) (Not Detect) Parainfluenza 3 (PCR) (Not Detect) Parainfluenza 4 (PCR) (Not Detect) RSV (PCR) (Not Detect) Entero/Rhino (PCR) (Not Detect) 09/23/22 09/23/22 09/23/22 Range/Units 04:00 04:15 05:22 WBC (4.5-11.0) X10^3/uL RBC (4.0-5.2) X10^6/uL Hgb (12.0-16.0) g/dL Hct (36-46) % MCV (80-100) fL MCH (26-34) PG MCHC (30-36) % RDW (11.6-14.8) % Plt Count (150-400) X10^3/uL Neut % (Auto) (50-75) % Lymph % (Auto) (25-40) % [place] % (Auto) (3-14) % Eos % (Auto) (2-4) % Baso % (Auto) (0-2) % Neut # (Auto) (5855-3606) /uL Lymph # (Auto) (5814-2375) /uL [place] # (Auto) (0-900) /uL Eos # (Auto) (0-450) /uL Baso # (Auto) (0-100) /uL PT (10.1-12.7) SECONDS INR (0.9-1.3) APTT (26-36) SECONDS D-Dimer (<500) ng/ml ABG pH 7.36 (7.35-7.45) ABG pCO2 32.6 L (35-45) mmHg ABG pO2 50 L (80-100) mmHg ABG HCO3 18 L (23-27) mmol/L ABG Total CO2 19 L (23-27) mmol/L ABG O2 Saturation 84 L* (95-100) % ABG Base Excess -7.0 L (-2-3) mmol/L FiO2 50 Sodium (137-145) mmol/L Potassium (3.4-5.1) mmol/L Chloride (98-107) mmol/L Carbon Dioxide (22-32) mmol/L BUN (7-17) mg/dL Creatinine (0.52-1.04) mg/dL Estimated GFR (>60) mL/min BUN/Creatinine Ratio (6-22) Glucose (80-110) mg/dL Lactate (0.7-2.1) mmol/L Calcium (8.4-10.2) mg/dL Magnesium (1.6-2.3) mg/dL Total Bilirubin (0.2-1.3) mg/dL AST (14-36) IU/L ALT (<35) IU/L Alkaline Phosphatase (38-126) U/L Total Creatine Kinase (30-135) U/L Troponin I (0.01-0.034) ng/mL NT-Pro-B Natriuret Pep (<450) pg/mL Total Protein (6.3-8.2) g/dL Albumin (3.5-5.0) g/dL Globulin (1.7-4.1) g/dL Albumin/Globulin Ratio (1.0-2.8) Procalcitonin (<0.5) ng/mL Urine Color Yellow Urine Appearance Clear Urine pH 5.5 (4.5-8.0) Ur Specific [place] 1.015 (1.000-1.035) Urine Protein Negative (Negative) Urine Glucose (UA) Negative (Negative) g/dL Urine Ketones Negative (NEGATIVE) Urine Occult Blood Negative (Negative) Urine Nitrate Negative (Negative) Urine Bilirubin Negative (NEGATIVE) Urine Urobilinogen 0.2 (0.2) E.U./dL Ur Leukocyte Esterase Negative (NEGATIVE) Urine RBC None seen (0-5/HPF) Urine WBC None seen (0-5/HPF) Ur Squamous Epith Cells 0-1 /hpf (0-5/HPF) Urine Bacteria None seen (None) Ur Culture Indicated? Cult not indicated Chlamy pneumoniae PCR Not detected (Not Detect) Adenovirus (PCR) Not detected (Not Detect) B. pertussis DNA (PCR) Not detected (Not Detecte) B.parapertussis DNA PCR Not detected (Not Detecte) Coronavirus OC43 (PCR) Not detected (Not Detect) Coronavirus HKU1 (PCR) Not detected (Not Detect) Coronavirus 229E (PCR) Not detected (Not Detect) SARS-CoV-2 (PCR) Not detected (Not Detecte) Coronavirus NL63 (PCR) Not detected (Not Detect) Human Metapneumovir PCR Not detected (Not Detect) Influenza Type A (PCR) Not detected (Not Detect) Influenza Type B (PCR) Not detected (Not Detect) M. pneumoniae (PCR) Not detected (Not Detect) Parainfluenza 1 (PCR) Not detected (Not Detect) Parainfluenza 2 (PCR) Not detected (Not Detect) Parainfluenza 3 (PCR) Not detected (Not Detect) Parainfluenza 4 (PCR) Not detected (Not Detect) RSV (PCR) Not detected (Not Detect) Entero/Rhino (PCR) Not detected (Not Detect) 09/23/22 09/23/22 09/23/22 Range/Units 16:20 16:20 16:20 WBC 5.8 (4.5-11.0) X10^3/uL RBC 2.66 L (4.0-5.2) X10^6/uL Hgb 8.9 L (12.0-16.0) g/dL Hct 25.0 L (36-46) % MCV 93.9 (80-100) fL MCH 33.5 (26-34) PG MCHC 35.6 (30-36) % RDW 12.4 (11.6-14.8) % Plt Count 184 (150-400) X10^3/uL Neut % (Auto) 75.7 H (50-75) % Lymph % (Auto) 11.2 L (25-40) % [place] % (Auto) 12.0 (3-14) % Eos % (Auto) 0.6 L (2-4) % Baso % (Auto) 0.5 (0-2) % Neut # (Auto) 4400 (1278-7375) /uL Lymph # (Auto) 700 L (7331-6327) /uL [place] # (Auto) 700 (0-900) /uL Eos # (Auto) 0 (0-450) /uL Baso # (Auto) 0 (0-100) /uL PT (10.1-12.7) SECONDS INR (0.9-1.3) APTT (26-36) SECONDS D-Dimer (<500) ng/ml ABG pH (7.35-7.45) ABG pCO2 (35-45) mmHg ABG pO2 (80-100) mmHg ABG HCO3 (23-27) mmol/L ABG Total CO2 (23-27) mmol/L ABG O2 Saturation (95-100) % ABG Base Excess (-2-3) mmol/L FiO2 Sodium 132 L (137-145) mmol/L Potassium 4.4 (3.4-5.1) mmol/L Chloride 100 (98-107) mmol/L Carbon Dioxide 22 (22-32) mmol/L BUN 53 H (7-17) mg/dL Creatinine 4.14 H (0.52-1.04) mg/dL Estimated GFR 10 L (>60) mL/min BUN/Creatinine Ratio 12.8 (6-22) Glucose 168 H (80-110) mg/dL Lactate (0.7-2.1) mmol/L Calcium 8.4 (8.4-10.2) mg/dL Magnesium 2.3 (1.6-2.3) mg/dL Total Bilirubin 0.4 (0.2-1.3) mg/dL AST 34 (14-36) IU/L ALT 25 (<35) IU/L Alkaline Phosphatase 113 (38-126) U/L Total Creatine Kinase (30-135) U/L Troponin I (0.01-0.034) ng/mL NT-Pro-B Natriuret Pep (<450) pg/mL Total Protein 6.4 (6.3-8.2) g/dL Albumin 3.6 (3.5-5.0) g/dL Globulin 2.8 (1.7-4.1) g/dL Albumin/Globulin Ratio 1.3 (1.0-2.8) Procalcitonin (<0.5) ng/mL Urine Color Urine Appearance Urine pH (4.5-8.0) Ur Specific [place] (1.000-1.035) Urine Protein (Negative) Urine Glucose (UA) (Negative) g/dL Urine Ketones (NEGATIVE) Urine Occult Blood (Negative) Urine Nitrate (Negative) Urine Bilirubin (NEGATIVE) Urine Urobilinogen (0.2) E.U./dL Ur Leukocyte Esterase (NEGATIVE) Urine RBC (0-5/HPF) Urine WBC (0-5/HPF) Ur Squamous Epith Cells (0-5/HPF) Urine Bacteria (None) Ur Culture Indicated? Chlamy pneumoniae PCR (Not Detect) Adenovirus (PCR) (Not Detect) B. pertussis DNA (PCR) (Not Detecte) B.parapertussis DNA PCR (Not Detecte) Coronavirus OC43 (PCR) (Not Detect) Coronavirus HKU1 (PCR) (Not Detect) Coronavirus 229E (PCR) (Not Detect) SARS-CoV-2 (PCR) (Not Detecte) Coronavirus NL63 (PCR) (Not Detect) Human Metapneumovir PCR (Not Detect) Influenza Type A (PCR) (Not Detect) Influenza Type B (PCR) (Not Detect) M. pneumoniae (PCR) (Not Detect) Parainfluenza 1 (PCR) (Not Detect) Parainfluenza 2 (PCR) (Not Detect) Parainfluenza 3 (PCR) (Not Detect) Parainfluenza 4 (PCR) (Not Detect) RSV (PCR) (Not Detect) Entero/Rhino (PCR) (Not Detect) 09/24/22 09/24/22 09/24/22 Range/Units 06:04 06:04 06:04 WBC 4.8 (4.5-11.0) X10^3/uL RBC 2.96 L (4.0-5.2) X10^6/uL Hgb 10.0 L (12.0-16.0) g/dL Hct 27.8 L (36-46) % MCV 94.1 (80-100) fL MCH 33.8 (26-34) PG MCHC 35.9 (30-36) % RDW 12.3 (11.6-14.8) % Plt Count 210 (150-400) X10^3/uL Neut % (Auto) 66.6 (50-75) % Lymph % (Auto) 16.7 L (25-40) % [place] % (Auto) 11.5 (3-14) % Eos % (Auto) 4.7 H (2-4) % Baso % (Auto) 0.5 (0-2) % Neut # (Auto) 3200 (3288-7652) /uL Lymph # (Auto) 800 L (7838-8371) /uL [place] # (Auto) 600 (0-900) /uL Eos # (Auto) 200 (0-450) /uL Baso # (Auto) 0 (0-100) /uL PT (10.1-12.7) SECONDS INR (0.9-1.3) APTT (26-36) SECONDS D-Dimer (<500) ng/ml ABG pH (7.35-7.45) ABG pCO2 (35-45) mmHg ABG pO2 (80-100) mmHg ABG HCO3 (23-27) mmol/L ABG Total CO2 (23-27) mmol/L ABG O2 Saturation (95-100) % ABG Base Excess (-2-3) mmol/L FiO2 Sodium 134 L (137-145) mmol/L Potassium 3.9 (3.4-5.1) mmol/L Chloride 99 (98-107) mmol/L Carbon Dioxide 23 (22-32) mmol/L BUN 53 H (7-17) mg/dL Creatinine 3.92 H (0.52-1.04) mg/dL Estimated GFR 11 L (>60) mL/min BUN/Creatinine Ratio 13.5 (6-22) Glucose 105 (80-110) mg/dL Lactate (0.7-2.1) mmol/L Calcium 8.5 (8.4-10.2) mg/dL Magnesium (1.6-2.3) mg/dL Total Bilirubin 0.5 (0.2-1.3) mg/dL AST 37 H (14-36) IU/L ALT 26 (<35) IU/L Alkaline Phosphatase 114 (38-126) U/L Total Creatine Kinase (30-135) U/L Troponin I 0.061 H (0.01-0.034) ng/mL NT-Pro-B Natriuret Pep 8590 H (<450) pg/mL Total Protein 6.6 (6.3-8.2) g/dL Albumin 3.7 (3.5-5.0) g/dL Globulin 2.9 (1.7-4.1) g/dL Albumin/Globulin Ratio 1.3 (1.0-2.8) Procalcitonin (<0.5) ng/mL Urine Color Urine Appearance Urine pH (4.5-8.0) Ur Specific [place] (1.000-1.035) Urine Protein (Negative) Urine Glucose (UA) (Negative) g/dL Urine Ketones (NEGATIVE) Urine Occult Blood (Negative) Urine Nitrate (Negative) Urine Bilirubin (NEGATIVE) Urine Urobilinogen (0.2) E.U./dL Ur Leukocyte Esterase (NEGATIVE) Urine RBC (0-5/HPF) Urine WBC (0-5/HPF) Ur Squamous Epith Cells (0-5/HPF) Urine Bacteria (None) Ur Culture Indicated? Chlamy pneumoniae PCR (Not Detect) Adenovirus (PCR) (Not Detect) B. pertussis DNA (PCR) (Not Detecte) B.parapertussis DNA PCR (Not Detecte) Coronavirus OC43 (PCR) (Not Detect) Coronavirus HKU1 (PCR) (Not Detect) Coronavirus 229E (PCR) (Not Detect) SARS-CoV-2 (PCR) (Not Detecte) Coronavirus NL63 (PCR) (Not Detect) Human Metapneumovir PCR (Not Detect) Influenza Type A (PCR) (Not Detect) Influenza Type B (PCR) (Not Detect) M. pneumoniae (PCR) (Not Detect) Parainfluenza 1 (PCR) (Not Detect) Parainfluenza 2 (PCR) (Not Detect) Parainfluenza 3 (PCR) (Not Detect) Parainfluenza 4 (PCR) (Not Detect) RSV (PCR) (Not Detect) Entero/Rhino (PCR) (Not Detect) 09/24/22 Range/Units 09:50 WBC (4.5-11.0) X10^3/uL RBC (4.0-5.2) X10^6/uL Hgb (12.0-16.0) g/dL Hct (36-46) % MCV (80-100) fL MCH (26-34) PG MCHC (30-36) % RDW (11.6-14.8) % Plt Count (150-400) X10^3/uL Neut % (Auto) (50-75) % Lymph % (Auto) (25-40) % [place] % (Auto) (3-14) % Eos % (Auto) (2-4) % Baso % (Auto) (0-2) % Neut # (Auto) (4556-3956) /uL Lymph # (Auto) (3897-5766) /uL [place] # (Auto) (0-900) /uL Eos # (Auto) (0-450) /uL Baso # (Auto) (0-100) /uL PT (10.1-12.7) SECONDS INR (0.9-1.3) APTT (26-36) SECONDS D-Dimer (<500) ng/ml ABG pH (7.35-7.45) ABG pCO2 (35-45) mmHg ABG pO2 (80-100) mmHg ABG HCO3 (23-27) mmol/L ABG Total CO2 (23-27) mmol/L ABG O2 Saturation (95-100) % ABG Base Excess (-2-3) mmol/L FiO2 Sodium (137-145) mmol/L Potassium (3.4-5.1) mmol/L Chloride (98-107) mmol/L Carbon Dioxide (22-32) mmol/L BUN (7-17) mg/dL Creatinine (0.52-1.04) mg/dL Estimated GFR (>60) mL/min BUN/Creatinine Ratio (6-22) Glucose (80-110) mg/dL Lactate (0.7-2.1) mmol/L Calcium (8.4-10.2) mg/dL Magnesium (1.6-2.3) mg/dL Total Bilirubin (0.2-1.3) mg/dL AST (14-36) IU/L ALT (<35) IU/L Alkaline Phosphatase (38-126) U/L Total Creatine Kinase (30-135) U/L Troponin I 0.052 H (0.01-0.034) ng/mL NT-Pro-B Natriuret Pep (<450) pg/mL Total Protein (6.3-8.2) g/dL Albumin (3.5-5.0) g/dL Globulin (1.7-4.1) g/dL Albumin/Globulin Ratio (1.0-2.8) Procalcitonin (<0.5) ng/mL Urine Color Urine Appearance Urine pH (4.5-8.0) Ur Specific [place] (1.000-1.035) Urine Protein (Negative) Urine Glucose (UA) (Negative) g/dL Urine Ketones (NEGATIVE) Urine Occult Blood (Negative) Urine Nitrate (Negative) Urine Bilirubin (NEGATIVE) Urine Urobilinogen (0.2) E.U./dL Ur Leukocyte Esterase (NEGATIVE) Urine RBC (0-5/HPF) Urine WBC (0-5/HPF) Ur Squamous Epith Cells (0-5/HPF) Urine Bacteria (None) Ur Culture Indicated? Chlamy pneumoniae PCR (Not Detect) Adenovirus (PCR) (Not Detect) B. pertussis DNA (PCR) (Not Detecte) B.parapertussis DNA PCR (Not Detecte) Coronavirus OC43 (PCR) (Not Detect) Coronavirus HKU1 (PCR) (Not Detect) Coronavirus 229E (PCR) (Not Detect) SARS-CoV-2 (PCR) (Not Detecte) Coronavirus NL63 (PCR) (Not Detect) Human Metapneumovir PCR (Not Detect) Influenza Type A (PCR) (Not Detect) Influenza Type B (PCR) (Not Detect) M. pneumoniae (PCR) (Not Detect) Parainfluenza 1 (PCR) (Not Detect) Parainfluenza 2 (PCR) (Not Detect) Parainfluenza 3 (PCR) (Not Detect) Parainfluenza 4 (PCR) (Not Detect) RSV (PCR) (Not Detect) Entero/Rhino (PCR) (Not Detect) Point of Care Testing Glucose POC 110 MDM Narrative Medical decision making narrative: Patient 81-year-old female presenting today with decreasing mental status and hypoxia. She has not had any shortness of breath or cough previously. Sudden onset of hypoxia concern for possible pulmonary edema with history of coronary artery disease and congestive heart failure. They are visiting from [place] drove up in a motor home they have been here for about month another possibility is pulmonary embolism however due to CKD creatinine is 4.1 patient and family quite adamant she can not have any contrast. BNP is elevated at 8500. She actually is not significantly tachypneic but does have coarse sounds bilaterally ABG does show a PaO2 of 50 on 6 L non-rebreather she is only on the 6 L for couple minutes previously she was 15 L. Clearly hypoxic. She is given Lasix and Hill catheter. September 23, 2022, 7:00 a.m., s/w dr hills, patient will need to be transferred, patient on high flow. Needs nephrology services. Patient was placed on Bactrim last dose was yesterday. This could be contributory to her acute on chronic renal failure. 9:00 a.m.. Spoke with patient and . They do understand need for transfer. Needs higher level of care Consult: 12:00 p.m.. I spoke with Dr. Mazariegos, nephrology with [facility], I reviewed laboratory studies and kidney function. He feels the Bactrim has affected the kidney function however not causing kidney failure. Overall he states the renal function is reassuring. He recommends continue Lasix 60 mg every 6 hours. Until able to wean off of high-flow. 2:43 p.m.. Spoke with Nephrology Services, [facility], Dr. Ley, at this time she does not feel patient needs to be transferred. The renal function to her is reassuring. After diuresis and patient is providing urine, no dialysis indicated. She recommends on top of the 120 mg already given today of Lasix, give another 100 mg now IV. For a total of 220 mg. She recommends giving Lasix 100 mg every 8 hours 5:[address] Hyatt, hospitalist here at this hospital, at this time there is no significant change was renal function is not worsening. I have reviewed with to nephrology services and no indication transfer or need dialysis. She recommends echocardiogram continue diuresis tonight and if can wean off of high-flow then tomorrow may need/be able to admit here. 6:00 p.m.. Charley: Sign out to Dr Hills, at this time no receiving Hospital but on waiting list. Nephrology Services contacted and no need for dialysis or transfer. I have spoken with hospitalist here for treatment plan 6:[address] [facility] Dr. Sen, she does not feel that patient needs to be transferred. Does not need dialysis. Agrees patient can have Lasix 100 mg every 8 hours. <Delores Perkins, DO - Last Filed: 09/24/22 18:48> Lab Data Labs: Lab Results 09/23/22 09/23/2223 Range/Units 03:50 03:50 03:50 WBC 8.7 (4.5-11.0) X10^3/uL RBC 2.76 L (4.0-5.2) X10^6/uL Hgb 9.3 L (12.0-16.0) g/dL Hct 26.1 L (36-46) % MCV 94.4 (80-100) fL MCH 33.8 (26-34) PG MCHC 35.8 (30-36) % RDW 12.3 (11.6-14.8) % Plt Count 208 (150-400) X10^3/uL Neut % (Auto) 78.8 H (50-75) % Lymph % (Auto) 9.1 L (25-40) % [place] % (Auto) 10.3 (3-14) % Eos % (Auto) 1.4 L (2-4) % Baso % (Auto) 0.4 (0-2) % Neut # (Auto) 6800 (8441-2365) /uL Lymph # (Auto) 800 L (4998-5076) /uL [place] # (Auto) 900 (0-900) /uL Eos # (Auto) 100 (0-450) /uL Baso # (Auto) 0 (0-100) /uL PT 13.4 H (10.1-12.7) SECONDS INR 1.2 (0.9-1.3) APTT (26-36) SECONDS D-Dimer (<500) ng/ml ABG pH (7.35-7.45) ABG pCO2 (35-45) mmHg ABG pO2 (80-100) mmHg ABG HCO3 (23-27) mmol/L ABG Total CO2 (23-27) mmol/L ABG O2 Saturation (95-100) % ABG Base Excess (-2-3) mmol/L FiO2 Sodium 131 L (137-145) mmol/L Potassium 4.7 (3.4-5.1) mmol/L Chloride 101 (98-107) mmol/L Carbon Dioxide 19 L (22-32) mmol/L BUN 49 H (7-17) mg/dL Creatinine 4.15 H (0.52-1.04) mg/dL Estimated GFR 10 L (>60) mL/min BUN/Creatinine Ratio 11.8 (6-22) Glucose 152 H (80-110) mg/dL Lactate (0.7-2.1) mmol/L Calcium 8.5 (8.4-10.2) mg/dL Magnesium (1.6-2.3) mg/dL Total Bilirubin 0.6 (0.2-1.3) mg/dL AST 37 H (14-36) IU/L ALT 25 (<35) IU/L Alkaline Phosphatase 138 H (38-126) U/L Total Creatine Kinase 113 (30-135) U/L Troponin I 0.018 (0.01-0.034) ng/mL NT-Pro-B Natriuret Pep 8590 H (<450) pg/mL Total Protein 6.5 (6.3-8.2) g/dL Albumin 3.8 (3.5-5.0) g/dL Globulin 2.7 (1.7-4.1) g/dL Albumin/Globulin Ratio 1.4 (1.0-2.8) Procalcitonin 0.15 (<0.5) ng/mL Urine Color Urine Appearance Urine pH (4.5-8.0) Ur Specific [place] (1.000-1.035) Urine Protein (Negative) Urine Glucose (UA) (Negative) g/dL Urine Ketones (NEGATIVE) Urine Occult Blood (Negative) Urine Nitrate (Negative) Urine Bilirubin (NEGATIVE) Urine Urobilinogen (0.2) E.U./dL Ur Leukocyte Esterase (NEGATIVE) Urine RBC (0-5/HPF) Urine WBC (0-5/HPF) Ur Squamous Epith Cells (0-5/HPF) Urine Bacteria (None) Ur Culture Indicated? Chlamy pneumoniae PCR (Not Detect) Adenovirus (PCR) (Not Detect) B. pertussis DNA (PCR) (Not Detecte) B.parapertussis DNA PCR (Not Detecte) Coronavirus OC43 (PCR) (Not Detect) Coronavirus HKU1 (PCR) (Not Detect) Coronavirus 229E (PCR) (Not Detect) SARS-CoV-2 (PCR) (Not Detecte) Coronavirus NL63 (PCR) (Not Detect) Human Metapneumovir PCR (Not Detect) Influenza Type A (PCR) (Not Detect) Influenza Type B (PCR) (Not Detect) M. pneumoniae (PCR) (Not Detect) Parainfluenza 1 (PCR) (Not Detect) Parainfluenza 2 (PCR) (Not Detect) Parainfluenza 3 (PCR) (Not Detect) Parainfluenza 4 (PCR) (Not Detect) RSV (PCR) (Not Detect) Entero/Rhino (PCR) (Not Detect) 09/23/22 09/23/22 09/23/22 Range/Units 03:50 03:50 03:50 WBC (4.5-11.0) X10^3/uL RBC (4.0-5.2) X10^6/uL Hgb (12.0-16.0) g/dL Hct (36-46) % MCV (80-100) fL MCH (26-34) PG MCHC (30-36) % RDW (11.6-14.8) % Plt Count (150-400) X10^3/uL Neut % (Auto) (50-75) % Lymph % (Auto) (25-40) % [place] % (Auto) (3-14) % Eos % (Auto) (2-4) % Baso % (Auto) (0-2) % Neut # (Auto) (2046-9437) /uL Lymph # (Auto) (5734-1022) /uL [place] # (Auto) (0-900) /uL Eos # (Auto) (0-450) /uL Baso # (Auto) (0-100) /uL PT (10.1-12.7) SECONDS INR (0.9-1.3) APTT 32 (26-36) SECONDS D-Dimer 1062 H (<500) ng/ml ABG pH (7.35-7.45) ABG pCO2 (35-45) mmHg ABG pO2 (80-100) mmHg ABG HCO3 (23-27) mmol/L ABG Total CO2 (23-27) mmol/L ABG O2 Saturation (95-100) % ABG Base Excess (-2-3) mmol/L FiO2 Sodium (137-145) mmol/L Potassium (3.4-5.1) mmol/L Chloride (98-107) mmol/L Carbon Dioxide (22-32) mmol/L BUN (7-17) mg/dL Creatinine (0.52-1.04) mg/dL Estimated GFR (>60) mL/min BUN/Creatinine Ratio (6-22) Glucose (80-110) mg/dL Lactate 1.2 (0.7-2.1) mmol/L Calcium (8.4-10.2) mg/dL Magnesium (1.6-2.3) mg/dL Total Bilirubin (0.2-1.3) mg/dL AST (14-36) IU/L ALT (<35) IU/L Alkaline Phosphatase (38-126) U/L Total Creatine Kinase (30-135) U/L Troponin I (0.01-0.034) ng/mL NT-Pro-B Natriuret Pep (<450) pg/mL Total Protein (6.3-8.2) g/dL Albumin (3.5-5.0) g/dL Globulin (1.7-4.1) g/dL Albumin/Globulin Ratio (1.0-2.8) Procalcitonin (<0.5) ng/mL Urine Color Urine Appearance Urine pH (4.5-8.0) Ur Specific [place] (1.000-1.035) Urine Protein (Negative) Urine Glucose (UA) (Negative) g/dL Urine Ketones (NEGATIVE) Urine Occult Blood (Negative) Urine Nitrate (Negative) Urine Bilirubin (NEGATIVE) Urine Urobilinogen (0.2) E.U./dL Ur Leukocyte Esterase (NEGATIVE) Urine RBC (0-5/HPF) Urine WBC (0-5/HPF) Ur Squamous Epith Cells (0-5/HPF) Urine Bacteria (None) Ur Culture Indicated? Chlamy pneumoniae PCR (Not Detect) Adenovirus (PCR) (Not Detect) B. pertussis DNA (PCR) (Not Detecte) B.parapertussis DNA PCR (Not Detecte) Coronavirus OC43 (PCR) (Not Detect) Coronavirus HKU1 (PCR) (Not Detect) Coronavirus 229E (PCR) (Not Detect) SARS-CoV-2 (PCR) (Not Detecte) Coronavirus NL63 (PCR) (Not Detect) Human Metapneumovir PCR (Not Detect) Influenza Type A (PCR) (Not Detect) Influenza Type B (PCR) (Not Detect) M. pneumoniae (PCR) (Not Detect) Parainfluenza 1 (PCR) (Not Detect) Parainfluenza 2 (PCR) (Not Detect) Parainfluenza 3 (PCR) (Not Detect) Parainfluenza 4 (PCR) (Not Detect) RSV (PCR) (Not Detect) Entero/Rhino (PCR) (Not Detect) 09/23/22 09/23/22 09/23/22 Range/Units 04:00 04:15 05:22 WBC (4.5-11.0) X10^3/uL RBC (4.0-5.2) X10^6/uL Hgb (12.0-16.0) g/dL Hct (36-46) % MCV (80-100) fL MCH (26-34) PG MCHC (30-36) % RDW (11.6-14.8) % Plt Count (150-400) X10^3/uL Neut % (Auto) (50-75) % Lymph % (Auto) (25-40) % [place] % (Auto) (3-14) % Eos % (Auto) (2-4) % Baso % (Auto) (0-2) % Neut # (Auto) (3069-4520) /uL Lymph # (Auto) (0636-7327) /uL [place] # (Auto) (0-900) /uL Eos # (Auto) (0-450) /uL Baso # (Auto) (0-100) /uL PT (10.1-12.7) SECONDS INR (0.9-1.3) APTT (26-36) SECONDS D-Dimer (<500) ng/ml ABG pH 7.36 (7.35-7.45) ABG pCO2 32.6 L (35-45) mmHg ABG pO2 50 L (80-100) mmHg ABG HCO3 18 L (23-27) mmol/L ABG Total CO2 19 L (23-27) mmol/L ABG O2 Saturation 84 L* (95-100) % ABG Base Excess -7.0 L (-2-3) mmol/L FiO2 50 Sodium (137-145) mmol/L Potassium (3.4-5.1) mmol/L Chloride (98-107) mmol/L Carbon Dioxide (22-32) mmol/L BUN (7-17) mg/dL Creatinine (0.52-1.04) mg/dL Estimated GFR (>60) mL/min BUN/Creatinine Ratio (6-22) Glucose (80-110) mg/dL Lactate (0.7-2.1) mmol/L Calcium (8.4-10.2) mg/dL Magnesium (1.6-2.3) mg/dL Total Bilirubin (0.2-1.3) mg/dL AST (14-36) IU/L ALT (<35) IU/L Alkaline Phosphatase (38-126) U/L Total Creatine Kinase (30-135) U/L Troponin I (0.01-0.034) ng/mL NT-Pro-B Natriuret Pep (<450) pg/mL Total Protein (6.3-8.2) g/dL Albumin (3.5-5.0) g/dL Globulin (1.7-4.1) g/dL Albumin/Globulin Ratio (1.0-2.8) Procalcitonin (<0.5) ng/mL Urine Color Yellow Urine Appearance Clear Urine pH 5.5 (4.5-8.0) Ur Specific [place] 1.015 (1.000-1.035) Urine Protein Negative (Negative) Urine Glucose (UA) Negative (Negative) g/dL Urine Ketones Negative (NEGATIVE) Urine Occult Blood Negative (Negative) Urine Nitrate Negative (Negative) Urine Bilirubin Negative (NEGATIVE) Urine Urobilinogen 0.2 (0.2) E.U./dL Ur Leukocyte Esterase Negative (NEGATIVE) Urine RBC None seen (0-5/HPF) Urine WBC None seen (0-5/HPF) Ur Squamous Epith Cells 0-1 /hpf (0-5/HPF) Urine Bacteria None seen (None) Ur Culture Indicated? Cult not indicated Chlamy pneumoniae PCR Not detected (Not Detect) Adenovirus (PCR) Not detected (Not Detect) B. pertussis DNA (PCR) Not detected (Not Detecte) B.parapertussis DNA PCR Not detected (Not Detecte) Coronavirus OC43 (PCR) Not detected (Not Detect) Coronavirus HKU1 (PCR) Not detected (Not Detect) Coronavirus 229E (PCR) Not detected (Not Detect) SARS-CoV-2 (PCR) Not detected (Not Detecte) Coronavirus NL63 (PCR) Not detected (Not Detect) Human Metapneumovir PCR Not detected (Not Detect) Influenza Type A (PCR) Not detected (Not Detect) Influenza Type B (PCR) Not detected (Not Detect) M. pneumoniae (PCR) Not detected (Not Detect) Parainfluenza 1 (PCR) Not detected (Not Detect) Parainfluenza 2 (PCR) Not detected (Not Detect) Parainfluenza 3 (PCR) Not detected (Not Detect) Parainfluenza 4 (PCR) Not detected (Not Detect) RSV (PCR) Not detected (Not Detect) Entero/Rhino (PCR) Not detected (Not Detect) 09/23/22 09/23/22 09/23/22 Range/Units 16:20 16:20 16:20 WBC 5.8 (4.5-11.0) X10^3/uL RBC 2.66 L (4.0-5.2) X10^6/uL Hgb 8.9 L (12.0-16.0) g/dL Hct 25.0 L (36-46) % MCV 93.9 (80-100) fL MCH 33.5 (26-34) PG MCHC 35.6 (30-36) % RDW 12.4 (11.6-14.8) % Plt Count 184 (150-400) X10^3/uL Neut % (Auto) 75.7 H (50-75) % Lymph % (Auto) 11.2 L (25-40) % [place] % (Auto) 12.0 (3-14) % Eos % (Auto) 0.6 L (2-4) % Baso % (Auto) 0.5 (0-2) % Neut # (Auto) 4400 (2465-7685) /uL Lymph # (Auto) 700 L (5369-1457) /uL [place] # (Auto) 700 (0-900) /uL Eos # (Auto) 0 (0-450) /uL Baso # (Auto) 0 (0-100) /uL PT (10.1-12.7) SECONDS INR (0.9-1.3) APTT (26-36) SECONDS D-Dimer (<500) ng/ml ABG pH (7.35-7.45) ABG pCO2 (35-45) mmHg ABG pO2 (80-100) mmHg ABG HCO3 (23-27) mmol/L ABG Total CO2 (23-27) mmol/L ABG O2 Saturation (95-100) % ABG Base Excess (-2-3) mmol/L FiO2 Sodium 132 L (137-145) mmol/L Potassium 4.4 (3.4-5.1) mmol/L Chloride 100 (98-107) mmol/L Carbon Dioxide 22 (22-32) mmol/L BUN 53 H (7-17) mg/dL Creatinine 4.14 H (0.52-1.04) mg/dL Estimated GFR 10 L (>60) mL/min BUN/Creatinine Ratio 12.8 (6-22) Glucose 168 H (80-110) mg/dL Lactate (0.7-2.1) mmol/L Calcium 8.4 (8.4-10.2) mg/dL Magnesium 2.3 (1.6-2.3) mg/dL Total Bilirubin 0.4 (0.2-1.3) mg/dL AST 34 (14-36) IU/L ALT 25 (<35) IU/L Alkaline Phosphatase 113 (38-126) U/L Total Creatine Kinase (30-135) U/L Troponin I (0.01-0.034) ng/mL NT-Pro-B Natriuret Pep (<450) pg/mL Total Protein 6.4 (6.3-8.2) g/dL Albumin 3.6 (3.5-5.0) g/dL Globulin 2.8 (1.7-4.1) g/dL Albumin/Globulin Ratio 1.3 (1.0-2.8) Procalcitonin (<0.5) ng/mL Urine Color Urine Appearance Urine pH (4.5-8.0) Ur Specific [place] (1.000-1.035) Urine Protein (Negative) Urine Glucose (UA) (Negative) g/dL Urine Ketones (NEGATIVE) Urine Occult Blood (Negative) Urine Nitrate (Negative) Urine Bilirubin (NEGATIVE) Urine Urobilinogen (0.2) E.U./dL Ur Leukocyte Esterase (NEGATIVE) Urine RBC (0-5/HPF) Urine WBC (0-5/HPF) Ur Squamous Epith Cells (0-5/HPF) Urine Bacteria (None) Ur Culture Indicated? Chlamy pneumoniae PCR (Not Detect) Adenovirus (PCR) (Not Detect) B. pertussis DNA (PCR) (Not Detecte) B.parapertussis DNA PCR (Not Detecte) Coronavirus OC43 (PCR) (Not Detect) Coronavirus HKU1 (PCR) (Not Detect) Coronavirus 229E (PCR) (Not Detect) SARS-CoV-2 (PCR) (Not Detecte) Coronavirus NL63 (PCR) (Not Detect) Human Metapneumovir PCR (Not Detect) Influenza Type A (PCR) (Not Detect) Influenza Type B (PCR) (Not Detect) M. pneumoniae (PCR) (Not Detect) Parainfluenza 1 (PCR) (Not Detect) Parainfluenza 2 (PCR) (Not Detect) Parainfluenza 3 (PCR) (Not Detect) Parainfluenza 4 (PCR) (Not Detect) RSV (PCR) (Not Detect) Entero/Rhino (PCR) (Not Detect) 09/24/22 09/24/22 09/24/22 Range/Units 06:04 06:04 06:04 WBC 4.8 (4.5-11.0) X10^3/uL RBC 2.96 L (4.0-5.2) X10^6/uL Hgb 10.0 L (12.0-16.0) g/dL Hct 27.8 L (36-46) % MCV 94.1 (80-100) fL MCH 33.8 (26-34) PG MCHC 35.9 (30-36) % RDW 12.3 (11.6-14.8) % Plt Count 210 (150-400) X10^3/uL Neut % (Auto) 66.6 (50-75) % Lymph % (Auto) 16.7 L (25-40) % [place] % (Auto) 11.5 (3-14) % Eos % (Auto) 4.7 H (2-4) % Baso % (Auto) 0.5 (0-2) % Neut # (Auto) 3200 (8405-8839) /uL Lymph # (Auto) 800 L (7879-6565) /uL [place] # (Auto) 600 (0-900) /uL Eos # (Auto) 200 (0-450) /uL Baso # (Auto) 0 (0-100) /uL PT (10.1-12.7) SECONDS INR (0.9-1.3) APTT (26-36) SECONDS D-Dimer (<500) ng/ml ABG pH (7.35-7.45) ABG pCO2 (35-45) mmHg ABG pO2 (80-100) mmHg ABG HCO3 (23-27) mmol/L ABG Total CO2 (23-27) mmol/L ABG O2 Saturation (95-100) % ABG Base Excess (-2-3) mmol/L FiO2 Sodium 134 L (137-145) mmol/L Potassium 3.9 (3.4-5.1) mmol/L Chloride 99 (98-107) mmol/L Carbon Dioxide 23 (22-32) mmol/L BUN 53 H (7-17) mg/dL Creatinine 3.92 H (0.52-1.04) mg/dL Estimated GFR 11 L (>60) mL/min BUN/Creatinine Ratio 13.5 (6-22) Glucose 105 (80-110) mg/dL Lactate (0.7-2.1) mmol/L Calcium 8.5 (8.4-10.2) mg/dL Magnesium (1.6-2.3) mg/dL Total Bilirubin 0.5 (0.2-1.3) mg/dL AST 37 H (14-36) IU/L ALT 26 (<35) IU/L Alkaline Phosphatase 114 (38-126) U/L Total Creatine Kinase (30-135) U/L Troponin I 0.061 H (0.01-0.034) ng/mL NT-Pro-B Natriuret Pep 8590 H (<450) pg/mL Total Protein 6.6 (6.3-8.2) g/dL Albumin 3.7 (3.5-5.0) g/dL Globulin 2.9 (1.7-4.1) g/dL Albumin/Globulin Ratio 1.3 (1.0-2.8) Procalcitonin (<0.5) ng/mL Urine Color Urine Appearance Urine pH (4.5-8.0) Ur Specific [place] (1.000-1.035) Urine Protein (Negative) Urine Glucose (UA) (Negative) g/dL Urine Ketones (NEGATIVE) Urine Occult Blood (Negative) Urine Nitrate (Negative) Urine Bilirubin (NEGATIVE) Urine Urobilinogen (0.2) E.U./dL Ur Leukocyte Esterase (NEGATIVE) Urine RBC (0-5/HPF) Urine WBC (0-5/HPF) Ur Squamous Epith Cells (0-5/HPF) Urine Bacteria (None) Ur Culture Indicated? Chlamy pneumoniae PCR (Not Detect) Adenovirus (PCR) (Not Detect) B. pertussis DNA (PCR) (Not Detecte) B.parapertussis DNA PCR (Not Detecte) Coronavirus OC43 (PCR) (Not Detect) Coronavirus HKU1 (PCR) (Not Detect) Coronavirus 229E (PCR) (Not Detect) SARS-CoV-2 (PCR) (Not Detecte) Coronavirus NL63 (PCR) (Not Detect) Human Metapneumovir PCR (Not Detect) Influenza Type A (PCR) (Not Detect) Influenza Type B (PCR) (Not Detect) M. pneumoniae (PCR) (Not Detect) Parainfluenza 1 (PCR) (Not Detect) Parainfluenza 2 (PCR) (Not Detect) Parainfluenza 3 (PCR) (Not Detect) Parainfluenza 4 (PCR) (Not Detect) RSV (PCR) (Not Detect) Entero/Rhino (PCR) (Not Detect) 09/24/22 Range/Units 09:50 WBC (4.5-11.0) X10^3/uL RBC (4.0-5.2) X10^6/uL Hgb (12.0-16.0) g/dL Hct (36-46) % MCV (80-100) fL MCH (26-34) PG MCHC (30-36) % RDW (11.6-14.8) % Plt Count (150-400) X10^3/uL Neut % (Auto) (50-75) % Lymph % (Auto) (25-40) % [place] % (Auto) (3-14) % Eos % (Auto) (2-4) % Baso % (Auto) (0-2) % Neut # (Auto) (4043-0785) /uL Lymph # (Auto) (4975-5633) /uL [place] # (Auto) (0-900) /uL Eos # (Auto) (0-450) /uL Baso # (Auto) (0-100) /uL PT (10.1-12.7) SECONDS INR (0.9-1.3) APTT (26-36) SECONDS D-Dimer (<500) ng/ml ABG pH (7.35-7.45) ABG pCO2 (35-45) mmHg ABG pO2 (80-100) mmHg ABG HCO3 (23-27) mmol/L ABG Total CO2 (23-27) mmol/L ABG O2 Saturation (95-100) % ABG Base Excess (-2-3) mmol/L FiO2 Sodium (137-145) mmol/L Potassium (3.4-5.1) mmol/L Chloride (98-107) mmol/L Carbon Dioxide (22-32) mmol/L BUN (7-17) mg/dL Creatinine (0.52-1.04) mg/dL Estimated GFR (>60) mL/min BUN/Creatinine Ratio (6-22) Glucose (80-110) mg/dL Lactate (0.7-2.1) mmol/L Calcium (8.4-10.2) mg/dL Magnesium (1.6-2.3) mg/dL Total Bilirubin (0.2-1.3) mg/dL AST (14-36) IU/L ALT (<35) IU/L Alkaline Phosphatase (38-126) U/L Total Creatine Kinase (30-135) U/L Troponin I 0.052 H (0.01-0.034) ng/mL NT-Pro-B Natriuret Pep (<450) pg/mL Total Protein (6.3-8.2) g/dL Albumin (3.5-5.0) g/dL Globulin (1.7-4.1) g/dL Albumin/Globulin Ratio (1.0-2.8) Procalcitonin (<0.5) ng/mL Urine Color Urine Appearance Urine pH (4.5-8.0) Ur Specific [place] (1.000-1.035) Urine Protein (Negative) Urine Glucose (UA) (Negative) g/dL Urine Ketones (NEGATIVE) Urine Occult Blood (Negative) Urine Nitrate (Negative) Urine Bilirubin (NEGATIVE) Urine Urobilinogen (0.2) E.U./dL Ur Leukocyte Esterase (NEGATIVE) Urine RBC (0-5/HPF) Urine WBC (0-5/HPF) Ur Squamous Epith Cells (0-5/HPF) Urine Bacteria (None) Ur Culture Indicated? Chlamy pneumoniae PCR (Not Detect) Adenovirus (PCR) (Not Detect) B. pertussis DNA (PCR) (Not Detecte) B.parapertussis DNA PCR (Not Detecte) Coronavirus OC43 (PCR) (Not Detect) Coronavirus HKU1 (PCR) (Not Detect) Coronavirus 229E (PCR) (Not Detect) SARS-CoV-2 (PCR) (Not Detecte) Coronavirus NL63 (PCR) (Not Detect) Human Metapneumovir PCR (Not Detect) Influenza Type A (PCR) (Not Detect) Influenza Type B (PCR) (Not Detect) M. pneumoniae (PCR) (Not Detect) Parainfluenza 1 (PCR) (Not Detect) Parainfluenza 2 (PCR) (Not Detect) Parainfluenza 3 (PCR) (Not Detect) Parainfluenza 4 (PCR) (Not Detect) RSV (PCR) (Not Detect) Entero/Rhino (PCR) (Not Detect) Point of Care Testing Glucose POC 110 Imaging Data ECHO: Radiologist's Impression: Lillian Marques??81??F??1940 ? Allergy/Adv: ampicillin Close Chest X-Ray (Signed) Jaden Coppola - 09/24/22 Echocardiogram Ultrasound (Signed) Mahin Overton - 09/23/[address] (Signed) Edgar Roth - 09/23/22 Chest X-Ray (Signed) Chato Chairez - 09/23/22 [place] [address] Echocardiography Report Signed Patient: Lillian Marques MR#: [id number] : 1940 Acct:[id number] Age/Sex: 81 / F Date of Service: 09/23/22 Loc: ED Accession Number: [id number] ?? Procedure: EC echo doppler complete Ordering Provider: Shilpa Whitehead MD ? [facility]? +---------+ : ? :? [address] ? : ? : : ? :? [place], [place] ? : ? : : ? :? [address] ? : ? : : ? : ? Phone: [phone]? : ? : [phone]? [phone]? +---------+ ? Echocardiogram Report + + :Name: BALAJI LILLIAN? Study Date: 09/24/2022 ? Height: 65 in? : :[facility] ? ? ReadingLocation: ? Weight: 135 lb : : ? Gender: Female ? BSA: 1.7 m2? ? : :: 1940? Age: 81 yrs? BP: 133/72 mmHg: :Reason For Study: CONGESTIVE HEART FAILURE ? : :Ordering Physician: CHARLEY,? : :SHILPA? Performed By: Mahogany Cortez? : :Referring: SHILPA WHITEHEAD ? : + + Interpretation Summary The left ventricle is normal in size. The ejection fraction is estimated to be 60-65%. There is mid anteroseptal wall akinesis. There is mid inferoseptal wall hypokinesis. The right ventricle is normal in size and function. Pulmonary artery pressures cannot be estimated because of the lack of a measurable TR jet velocity. The left atrium is mildly dilated. Right atrial size is normal. There is no significant valvular heart disease. The aortic root is normal size. ? Procedure: ? A two-dimensional transthoracic echocardiogram with color flow and Doppler was performed. The study quality was technically adequate. There is no prior echocardiogram noted for this patient. The patient was in sinus bradycardia with heart rates between 72-75 bpm during the exam. Left Ventricle: ? The left ventricle is normal in size. Proximal septal thickening is noted. The ejection fraction is estimated to be 60-65%. There is mid anteroseptal wall akinesis. There is mid inferoseptal wall hypokinesis. Diastolic function could not be accurately assessed due to contradictory data. ? Right Ventricle: ? The right ventricle is normal in size and function. Atria: ? The left atrium is mildly dilated. Right atrial size is normal. There is no Doppler evidence for an interatrial shunt. Mitral Valve: ? There is mild to moderate mitral annular calcification. There is trace mitral regurgitation. Aortic Valve: ? The aortic valve is mildly calcified. The aortic valve is trileaflet. There is no aortic valve stenosis. No aortic regurgitation is present. Tricuspid Valve: ? The tricuspid valve is normal in structure and function. There is a trace or physiologic amount of tricuspid regurgitation. Pulmonary artery pressures cannot be estimated because of the lack of a measurable TR jet velocity. Pulmonic Valve: ? The pulmonic valve leaflets are thin and pliable; valve motion is normal. There is trace pulmonic regurgitation. There is no significant valvular heart disease. Great Vessels: ? The aortic root is normal size. The ascending aorta could not be visualized. The IVC is of normal diameter and collapses greater than 50% with a sniff. This suggests a low right atrial pressure of 3 mm Hg. Pericardium/ Pleura ? There is no pericardial effusion. There is no pleural effusion. ? MMode/2D Measurements & Calculations LVIDd: 4.8 cm? LVOT diam: 2.0 cm LVIDs: 3.3 cm? Ao root diam: 2.8 cm FS: 31.0 % ? Ao Arch Diam (Prox Trans): 2.2 cm EPSS: 0.57 cm IVSd: 0.60 cm LVPWd: 0.93 cm LV stark. diameter/BSA (cm/m^2): 2.9 LV sys. diameter/BSA (cm/m^2): 2.0 ? LA A2 area: 21.3 cm2 ? RA long axis: 4.0 cm LA A4 area: 17.9 cm2 ? RA area: 11.2 cm2 LA length (vol): 5.2 cm? RA vol: 26.4 ml LA vol: 62.3 ml? RA : 15.8 ml/m2 LA vol index: 37.2 ml/m2 ? IVC diam: 1.6 cm ? RVD1 (basal): 3.4 cm RVD2 (mid): 2.8 cm TAPSE: 2.1 cm ? Doppler Measurements & Calculations Ao V2 max: 187.2 cm/sec ? LVOT Max Riky: 85.5 cm/sec Ao V2 mean: 131.5 cm/sec? LV V1 max P.9 mmHg Ao max P.0 mmHg? LV V1 VTI: 23.3 cm Ao mean P.8 mmHg? WILNER(I,D): 1.8 cm2 Ao V2 VTI: 43.5 cm? WILNER(V,D): 1.5 cm2 ? sev ratio: 0.54 ? WILNER indexed to BSA (cm^2/m^2): 1.1 ? MV E max riky: 80.8 cm/sec ? PA V2 max: 111.3 cm/sec MV A max riky: 107.2 cm/sec? PA V2 mean: 74.2 cm/sec MV E/A: 0.75? PA mean P.5 mmHg Med Peak E' Riky: 4.5 cm/sec ? ? ? PA pr(Accel): 46.5 mmHg E/E' med: 18.1 Lat Peak E' Riky: 7.5 cm/sec E/E' lat: 10.8 E/e' average: 14.4 MV dec time: 0.26 sec ? SV(LVOT): 76.7 ml ? Reading Physician:08:45 AM MDM Narrative Medical decision making narrative: Patient 81-year-old female presenting today with decreasing mental status and hypoxia. She has not had any shortness of breath or cough previously. Sudden onset of hypoxia concern for possible pulmonary edema with history of coronary artery disease and congestive heart failure. They are visiting from [place] drove up in a motor home they have been here for about month another possibility is pulmonary embolism however due to CKD creatinine is 4.1 patient and family quite adamant she can not have any contrast. BNP is elevated at 8500. She ac tually is not significantly tachypneic but does have coarse sounds bilaterally ABG does show a PaO2 of 50 on 6 L non-rebreather she is only on the 6 L for couple minutes previously she was 15 L. Clearly hypoxic. She is given Lasix and Hill catheter. She has started urinating and responding to Lasix. Spoke with Dr. Hyatt in regards to patient kidney disease creatinine of 4 which is baseline for her difficulty breathing on high flow recommends patient be transferred for further evaluation and nephrology available. Signed out to Dr. Whitehead September 23, 2022, 7:00 a.m., s/w dr hills, patient will need to be transferred, patient on high flow. Needs nephrology services. Patient was placed on Bactrim last dose was yesterday. This could be contributory to her acute on chronic renal failure. 9:00 a.m.. Spoke with patient and . They do understand need for transfer. Needs higher level of care Consult: 12:00 p.m.. I spoke with Dr. Mazariegos, nephrology with [facility], I reviewed laboratory studies and kidney function. He feels the Bactrim has affected the kidney function however not causing kidney failure. Overall he states the renal function is reassuring. He recommends continue Lasix 60 mg every 6 hours. Until able to wean off of high-flow. 2:43 p.m.. Spoke with Nephrology Services, Edith weeks, Dr. Ley, at this time she does not feel patient needs to be transferred. The renal function to her is reassuring. After diuresis and patient is providing urine, no dialysis indicated. She recommends on top of the 120 mg already given today of Lasix, give another 100 mg now IV. For a total of 220 mg. She recommends giving Lasix 100 mg every 8 hours 5:[address] Hyatt, hospitalist here at this hospital, at this time there is no significant change was renal function is not worsening. I have reviewed with to nephrology services and no indication transfer or need dialysis. She recommends echocardiogram continue diuresis tonight and if can wean off of high-flow then tomorrow may need/be able to admit here. 6:00 p.m.. Charley: Sign out to Dr Hills, at this time no receiving Hospital but on waiting list. Nephrology Services contacted and no need for dialysis or transfer. I have spoken with hospitalist here for treatment plan 6:[address] with [facility] Dr. Sen, she does not feel that patient needs to be transferred. Does not need dialysis. Agrees patient can have Lasix 100 mg every [address] Hills-patient signed out to me by Dr. Hsu. Multiple nephrologists has been spoken to and consulted today none of which state that patient needs to be transferred. In fact 1 recommended high dose Lasix which she is responding to. She is now been taken off high-flow and on nasal cannula. Electrolyte seem to be stable. Blood work this morning is actually improved creatinine of 3.92 previously 4.1. Otherwise stable. Patient signed out to Dr. Perkins with hopes of admitting here after being refused by multiple nephrologists in hospitals yesterday 09/24/22 Andrewsinocente: This is a 81-year-old female with history of chronic kidney disease not on dialysis still makes urine. 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 Patient states she is feeling improved from the prior days. She had a little shortness of breath yesterday she denies any chest pain or pressure, she has no shortness of breath today. She denies any recent fevers. She had some nausea and vomiting couple days before states she would had a UTI and thought that that was the cause. Patient denies any urinary symptoms. No abdominal back or flank pain. She does have chronic back pain. Patient denies any swelling of her extremities she denies any fevers chills or infectious symptoms currently. Patient states she is had cholecystectomy, hysterectomy, IVC filter placed after getting a blood clot after breaking her leg and then breaking her other leg later and requiring surgery. She has had heart attack in October she states she is on an aspirin 81 mg daily,. She might also be on Plavix and she takes medication for her heart, water pill, thyroid and insulin. Patient was on high-flow initially has been weaned down to 3 L. prior emergency physicians attempted to admit her but were asked to talk to Nephrology 3 different cloth shearing supervisor reportedly recommended high-dose Lasix, patient did have some improvement over the last 30 hours in her renal function, electrolytes are appropriate. Patient troponin BNP repeated, troponins indeterminate BNP is the same. Patient's chest x-ray repeated appear significantly improved from arrival . Suspect more fluid overload at this time. Reviewed patient's home medications, she has her insulin pump on, continue with Accu-Cheks q.a.c. and , she is receiving her Plavix but not aspirin, med ications were reviewed we will continue to hold her amlodipine and metoprolol this time. Patient did have echo this morning awaiting results. Patient case was discussed with Dr. Boss hospitalist service, he would like echo result before accepting and if significant change may still need to do transfer. If not we will decide if CT chest high-resolution is appropriate or not. Did review dependent on echo results starting antibiotics and DVT prophylaxis recommended heparin SC. Discussed would like for consult even if patient is being transferred. Echo shows EF 60% normal left ventricle mild anteroseptal wall akinesis mild inferoseptal wall hypokinesis. Patient's repeat trope for the 3rd is slightly trending down words chest x-ray significantly improved. Spoke with Dr. Johnson who accepts. <Delores Perkins, DO - Last Filed: 09/24/22 18:48> Critical Care Time Critical Care Time: Yes Total Critical Care Time: 50 Attestation: The high probability of a clinically significant, sudden or life threatening deterioration of the [cardiac] system(s) required my full and direct attention, intervention and personal management. The aggregate critical care time was [] minutes. This time is in addition to time spent performing reported procedures but includes the following: [x] Data Review and interpretation [x] Patient assessment and monitoring of vital signs [x] Documentation [x] Medication orders and management Discharge Plan Departure Patient Disposition: [facility] Clinical Impression: Hypoxia, Acute on chronic kidney failure
--- NOTE | 2022-09-23 04:12 | DI.CT.S_ITS ---
PROCEDURE: CT HEAD/BRAIN WO CON INDICATIONS: altered mental status TECHNIQUE: Noncontrast 4.5 mm thick angled axial sections acquired from the foramen magnum to the vertex, with coronal and sagittal reformats. For radiation dose reduction, the following was used: automated exposure control, adjustment of mA and/or kV according to patient size. COMPARISON: None. FINDINGS: Image quality: Excellent. CSF spaces: Basal cisterns are patent. No extra-axial fluid collections. The ventricles are symmetric in size and shape. Brain: No intracranial bleeds or masses. There is cerebral volume loss for age, with resultant ventricular and sulcal prominence. There are periventricular and deep white matter chronic small vessel ischemic changes. There is intracranial internal carotid artery atherosclerosis. Skull and face: Calvarium and visualized facial bones appear intact, without suspicious lesions. Sinuses: Visualized sinuses and mastoids are clear. IMPRESSION: 1. CT head without acute intracranial abnormalities or acute calvarial fractures. 2. Age-related senescent changes and sequela of chronic small vessel ischemic disease. No significant discrepancy with the shift leader radiology preliminary report. Dictated by: Edgar Roth M.D. on 09/23/2022 at 7:55 Approved by: Edgar Roth M.D. on 09/23/2022 at 7:55
[2022-09-23 04:13] LABS: Add Manual Diff / Slide Review NO; Basophils Absolute Auto 0 /uL (0-100); Basophils Percent Auto 0.4 % (0-2); Eosinophils Absolute Auto 100 /uL (0-450); Eosinophils Percent Auto 1.4 % (2-4); Hematocrit 26.1 % (36-46); Hemoglobin 9.3 g/dL (12.0-16.0); Lymphocytes Absolute Auto 800 /uL (1100-4500); Lymphocytes Percent Auto 9.1 % (25-40); Mean Corpuscular HGB Conc 35.8 % (30-36); Mean Corpuscular Hemoglobin 33.8 PG (26-34); Mean Corpuscular Volume 94.4 fL (80-100); Monocytes Absolute Auto 900 /uL (0-900); Monocytes Percent Auto 10.3 % (3-14); Neutrophils Absolute Auto 6800 /uL (1500-7000); Neutrophils Percent Auto 78.8 % (50-75); Platelet Count 208 X10^3/uL (150-400); Red Blood Cell Count 2.76 X10^6/uL (4.0-5.2); Red Cell Distribution Width 12.3 % (11.6-14.8); White Blood Cell Count 8.7 X10^3/uL (4.5-11.0)
[2022-09-23 04:22] LABS: INR 1.2 (0.9-1.3); Prothrombin Time 13.4 SECONDS (10.1-12.7)
[2022-09-23 04:27] LABS: Alanine Aminotransferase 25 IU/L (<35); Albumin 3.8 g/dL (3.5-5.0); Albumin Globulin Ratio 1.4 (1.0-2.8); Alkaline Phosphatase 138 U/L (38-126); Aspartate Aminotransferase 37 IU/L (14-36); BUN Creatinine Ratio 11.8 (6-22); Bilirubin Total 0.6 mg/dL (0.2-1.3); Blood Urea Nitrogen 49 mg/dL (7-17); Calcium 8.5 mg/dL (8.4-10.2); Carbon Dioxide 19 mmol/L (22-32); Chloride 101 mmol/L (98-107); Creatine Kinase 113 U/L (30-135); Estimated Glomerular Filt Rate 10 mL/min (>60); Globulin 2.7 g/dL (1.7-4.1); Glucose 152 mg/dL (80-110); HEMOLYSIS < 15 (0-50); Lactate (Lactic Acid) 1.2 mmol/L (0.7-2.1); Potassium 4.7 mmol/L (3.4-5.1); Sodium 131 mmol/L (137-145); Total Protein 6.5 g/dL (6.3-8.2)
[2022-09-23 04:37] LABS: PTT Partial Thromboplastin Tim 32 SECONDS (26-36)
[2022-09-23 04:39] LABS: NT-proBNP (BNP-Adult 18+) 8590 pg/mL (<450); Troponin I 0.018 ng/mL (0.01-0.034)
[2022-09-23 04:44] LABS: Procalcitonin 0.15 ng/mL (<0.5)
[2022-09-23 05:22] LABS: D Dimer 1062 ng/ml (<500)
[2022-09-23] MEDS: FUROSEMIDE 60 MG in SODIUM CHLORIDE 0.9% 50 ML 112 MG IV ×2 (05:34→13:22)
[2022-09-23 05:36] LABS: Adenovirus Not Detected (Not Detect); B. parapertussis Not Detected (Not Detecte); Bordetella pertussis Not Detected (Not Detecte); Chlamydophila pneumoniae Not Detected (Not Detect); Coronavirus 229E Not Detected (Not Detect); Coronavirus HKU1 Not Detected (Not Detect); Coronavirus NL 63 Not Detected (Not Detect); Coronavirus OC43 Not Detected (Not Detect); Human Metapneumovirus Not Detected (Not Detect); Human Rhinovirus/Enterovirus Not Detected (Not Detect); Influenza A Not Detected (Not Detect); Influenza B Not Detected (Not Detect); Mycoplasma pneumoniae Not Detected (Not Detect); Parainfluenza Virus 1 Not Detected (Not Detect); Parainfluenza Virus 2 Not Detected (Not Detect); Parainfluenza Virus 3 Not Detected (Not Detect); Parainfluenza Virus 4 Not Detected (Not Detect); Respiratory Syncytial Virus Not Detected (Not Detect); SARS- CoV-2 Not Detected (Not Detecte)
[2022-09-23 05:46] LABS: HCO3 ABG 18 mmol/L (23-27); PCO2 ABG 32.6 mmHg (35-45); PO2 ABG 50 mmHg (80-100); TCO2 ABG 19 mmol/L (23-27); pH ABG 7.36 (7.35-7.45)
[2022-09-23] MEDS: ACETAMINOPHEN 325 MG TABLET 650 MG PO (05:47)
[2022-09-23 05:49] LABS: Fractionated Inspired Oxygen 50
[2022-09-23 05:49] LABS: Appearance Urine UA CLEAR; Bilirubin Urine UA NEGATIVE (NEGATIVE); Color Urine UA YELLOW; Glucose Urine UA NEGATIVE (Negative); Ketones Urine UA NEGATIVE (NEGATIVE); Leukocyte Esterase Urine UA NEGATIVE (NEGATIVE); Nitrite Urine UA NEGATIVE (Negative); Occult Blood Urine UA NEGATIVE (Negative); Protein Urine UA NEGATIVE (Negative); Specific Gravity Urine UA 1.015 (1.000-1.035); Urobilinogen Urine UA 0.2 E.U./dL (0.2)
[2022-09-23 05:56] LABS: Bacteria Urine None Seen; Culture Indicated Urine Cult Not Indicated; RBC Urine None Seen (0-5/HPF); Squamous Epithelial Cell Urine 0-1 /HPF (0-5/HPF); WBC Urine None Seen (0-5/HPF); pH Urine UA 5.5 (4.5-8.0)
--- NOTE | 2022-09-23 07:25 | PC.NURSE ---
Pt is A&Ox4, resting comfortably with at bedside. Denies SOB, nausea, pain, or other complaints. Reports very occasional productive cough producing scant sputum for about two weeks.
[2022-09-23] MEDS: FUROSEMIDE 100 MG in SODIUM CHLORIDE 0.9% 50 ML 120 MG IV (14:57)
[2022-09-23 16:29] LABS: Add Manual Diff / Slide Review NO; Basophils Absolute Auto 0 /uL (0-100); Basophils Percent Auto 0.5 % (0-2); Eosinophils Absolute Auto 0 /uL (0-450); Eosinophils Percent Auto 0.6 % (2-4); Hemoglobin 8.9 g/dL (12.0-16.0); Lymphocytes Absolute Auto 700 /uL (1100-4500); Lymphocytes Percent Auto 11.2 % (25-40); Mean Corpuscular HGB Conc 35.6 % (30-36); Mean Corpuscular Hemoglobin 33.5 PG (26-34); Mean Corpuscular Volume 93.9 fL (80-100); Monocytes Absolute Auto 700 /uL (0-900); Neutrophils Absolute Auto 4400 /uL (1500-7000); Neutrophils Percent Auto 75.7 % (50-75); Platelet Count 184 X10^3/uL (150-400); Red Blood Cell Count 2.66 X10^6/uL (4.0-5.2); Red Cell Distribution Width 12.4 % (11.6-14.8); White Blood Cell Count 5.8 X10^3/uL (4.5-11.0)
[2022-09-23 16:51] LABS: Alanine Aminotransferase 25 IU/L (<35); Albumin 3.6 g/dL (3.5-5.0); Albumin Globulin Ratio 1.3 (1.0-2.8); Alkaline Phosphatase 113 U/L (38-126); Aspartate Aminotransferase 34 IU/L (14-36); BUN Creatinine Ratio 12.8 (6-22); Bilirubin Total 0.4 mg/dL (0.2-1.3); Blood Urea Nitrogen 53 mg/dL (7-17); Calcium 8.4 mg/dL (8.4-10.2); Carbon Dioxide 22 mmol/L (22-32); Chloride 100 mmol/L (98-107); Estimated Glomerular Filt Rate 10 mL/min (>60); Globulin 2.8 g/dL (1.7-4.1); Glucose 168 mg/dL (80-110); HEMOLYSIS < 15 (0-50); Potassium 4.4 mmol/L (3.4-5.1); Sodium 132 mmol/L (137-145); Total Protein 6.4 g/dL (6.3-8.2)
--- NOTE | 2022-09-23 17:17 | DI.ECHO.S_ITS ---
[place] +---------+ Hospital +---------+ : : [address] [place] : : : : [id number] : : : : Phone: [phone] : [phone]---------+ Echocardiogram Report + + :Name: RUBI CARPIO Study Date: 09/24/2022 Height: 65 in : :[facility] ReadingLocation: Weight: 135 lb : : Gender: Female BSA: 1.7 m2 : :: 1940 Age: 81 yrs BP: 133/72 mmHg: :Reason For Study: CONGESTIVE HEART FAILURE : :Ordering Physician: CHARLEY, : :SHILPA Performed By: Mahogany Cortez : :Referring: SHILPA WHITEHEAD : + + Interpretation Summary The left ventricle is normal in size. The ejection fraction is estimated to be 60-65%. There is mid anteroseptal wall akinesis. There is mid inferoseptal wall hypokinesis. The right ventricle is normal in size and function. Pulmonary artery pressures cannot be estimated because of the lack of a measurable TR jet velocity. The left atrium is mildly dilated. Right atrial size is normal. There is no significant valvular heart disease. The aortic root is normal size. Procedure: A two-dimensional transthoracic echocardiogram with color flow and Doppler was performed. The study quality was technically adequate. There is no prior echocardiogram noted for this patient. The patient was in sinus bradycardia with heart rates between 72-75 bpm during the exam. Left Ventricle: The left ventricle is normal in size. Proximal septal thickening is noted. The ejection fraction is estimated to be 60-65%. There is mid anteroseptal wall akinesis. There is mid inferoseptal wall hypokinesis. Diastolic function could not be accurately assessed due to contradictory data. Right Ventricle: The right ventricle is normal in size and function. Atria: The left atrium is mildly dilated. Right atrial size is normal. There is no Doppler evidence for an interatrial shunt. Mitral Valve: There is mild to moderate mitral annular calcification. There is trace mitral regurgitation. Aortic Valve: The aortic valve is mildly calcified. The aortic valve is trileaflet. There is no aortic valve stenosis. No aortic regurgitation is present. Tricuspid Valve: The tricuspid valve is normal in structure and function. There is a trace or physiologic amount of tricuspid regurgitation. Pulmonary artery pressures cannot be estimated because of the lack of a measurable TR jet velocity. Pulmonic Valve: The pulmonic valve leaflets are thin and pliable; valve motion is normal. There is trace pulmonic regurgitation. There is no significant valvular heart disease. Great Vessels: The aortic root is normal size. The ascending aorta could not be visualized. The IVC is of normal diameter and collapses greater than 50% with a sniff. This suggests a low right atrial pressure of 3 mm Hg. Pericardium/ Pleura There is no pericardial effusion. There is no pleural effusion. MMode/2D Measurements & Calculations LVIDd: 4.8 cm LVOT diam: 2.0 cm LVIDs: 3.3 cm Ao root diam: 2.8 cm FS: 31.0 % Ao Arch Diam (Prox Trans): 2.2 cm EPSS: 0.57 cm IVSd: 0.60 cm LVPWd: 0.93 cm LV stark. diameter/BSA (cm/m^2): 2.9 LV sys. diameter/BSA (cm/m^2): 2.0 LA A2 area: 21.3 cm2 RA long axis: 4.0 cm LA A4 area: 17.9 cm2 RA area: 11.2 cm2 LA length (vol): 5.2 cm RA vol: 26.4 ml LA vol: 62.3 ml RA : 15.8 ml/m2 LA vol index: 37.2 ml/m2 IVC diam: 1.6 cm RVD1 (basal): 3.4 cm RVD2 (mid): 2.8 cm TAPSE: 2.1 cm Doppler Measurements & Calculations Ao V2 max: 187.2 cm/sec LVOT Max Riky: 85.5 cm/sec Ao V2 mean: 131.5 cm/sec LV V1 max P.9 mmHg Ao max P.0 mmHg LV V1 VTI: 23.3 cm Ao mean P.8 mmHg WILNER(I,D): 1.8 cm2 Ao V2 VTI: 43.5 cm WILNER(V,D): 1.5 cm2 sev ratio: 0.54 WILNER indexed to BSA (cm^2/m^2): 1.1 MV E max riky: 80.8 cm/sec PA V2 max: 111.3 cm/sec MV A max riky: 107.2 cm/sec PA V2 mean: 74.2 cm/sec MV E/A: 0.75 PA mean P.5 mmHg Med Peak E' Riky: 4.5 cm/sec PA pr(Accel): 46.5 mmHg E/E' med: 18.1 Lat Peak E' Riky: 7.5 cm/sec E/E' lat: 10.8 E/e' average: 14.4 MV dec time: 0.26 sec SV(LVOT): 76.7 ml Reading Physician:08:45 AM
[2022-09-23 19:13] LABS: Oxygen Saturation ABG 84 % (95-100)
[2022-09-23 20:14] LABS: Magnesium 2.3 mg/dL (1.6-2.3)
[2022-09-23] MEDS: LATANOPROST 0.005% OPHTH 2.5 ML 1 DROPS EYE-RIGHT (21:17)
[2022-09-23] MEDS: MELATONIN 3 MG TABLET PO (21:17)
[2022-09-24] VITALS (31 sets, daily range): BP systolic 99–134; BP diastolic 52–82; PULSE 51–86; RESP 13–32; TEMP 35.9–36.7; O2SAT 91–99; BMI 24.3
[2022-09-24] MEDS: diphenhydrAMINE 50 MG/ML VIAL 25 MG IV (03:29)
[2022-09-24] MEDS: LEVOTHYROXINE 75 MCG TABLET PO (06:25)
[2022-09-24 06:40] LABS: Add Manual Diff / Slide Review NO; Basophils Absolute Auto 0 /uL (0-100); Basophils Percent Auto 0.5 % (0-2); Eosinophils Absolute Auto 200 /uL (0-450); Eosinophils Percent Auto 4.7 % (2-4); Hematocrit 27.8 % (36-46); Lymphocytes Absolute Auto 800 /uL (1100-4500); Lymphocytes Percent Auto 16.7 % (25-40); Mean Corpuscular HGB Conc 35.9 % (30-36); Mean Corpuscular Hemoglobin 33.8 PG (26-34); Mean Corpuscular Volume 94.1 fL (80-100); Monocytes Absolute Auto 600 /uL (0-900); Monocytes Percent Auto 11.5 % (3-14); Neutrophils Absolute Auto 3200 /uL (1500-7000); Neutrophils Percent Auto 66.6 % (50-75); Platelet Count 210 X10^3/uL (150-400); Red Blood Cell Count 2.96 X10^6/uL (4.0-5.2); Red Cell Distribution Width 12.3 % (11.6-14.8); White Blood Cell Count 4.8 X10^3/uL (4.5-11.0)
[2022-09-24 06:51] LABS: Alanine Aminotransferase 26 IU/L (<35); Albumin 3.7 g/dL (3.5-5.0); Albumin Globulin Ratio 1.3 (1.0-2.8); Alkaline Phosphatase 114 U/L (38-126); Aspartate Aminotransferase 37 IU/L (14-36); BUN Creatinine Ratio 13.5 (6-22); Bilirubin Total 0.5 mg/dL (0.2-1.3); Blood Urea Nitrogen 53 mg/dL (7-17); Calcium 8.5 mg/dL (8.4-10.2); Carbon Dioxide 23 mmol/L (22-32); Chloride 99 mmol/L (98-107); Estimated Glomerular Filt Rate 11 mL/min (>60); Globulin 2.9 g/dL (1.7-4.1); Glucose 105 mg/dL (80-110); HEMOLYSIS < 15 (0-50); Potassium 3.9 mmol/L (3.4-5.1); Sodium 134 mmol/L (137-145); Total Protein 6.6 g/dL (6.3-8.2)
--- NOTE | 2022-09-24 07:28 | DI.RAD.S_ITS ---
PROCEDURE: XR CHEST 1V INDICATIONS: boarding TECHNIQUE: One view of the chest was acquired. COMPARISON: [facility], CR, XR CHEST 1V, 09/23/2022, 3:52. FINDINGS: Surgical changes and devices: None. Lungs and pleura: Pulmonary vascular congestion seen on the prior study has significantly improved. No pneumothorax or pleural effusion. Bones and soft tissues are normal. Mediastinum: Mediastinal contours appear normal. Heart size is normal. Bones and chest wall: No suspicious bony lesions. Overlying soft tissues appear unremarkable. IMPRESSION: Pulmonary vascular congestion seen on the prior study has significantly improved. Dictated by: Jaden Coppola M.D. on 09/24/2022 at 8:16 Approved by: Jaden Coppola M.D. on 09/24/2022 at 8:19
[2022-09-24 07:54] LABS: NT-proBNP (BNP-Adult 18+) 8590 pg/mL (<450); Troponin I 0.061 ng/mL (0.01-0.034)
[2022-09-24] MEDS: HEPARIN 5,000 UNIT/ML VIAL 5000 UNIT SUBCUT (08:59)
[2022-09-24] MEDS: CLOPIDOGREL 75 MG TABLET PO (08:59)
[2022-09-24] MEDS: ASPIRIN EC 81 MG TABLET PO (08:59)
[2022-09-24 10:23] LABS: Troponin I 0.052 ng/mL (0.01-0.034)
--- NOTE | 2022-09-24 15:21 | P.HP_ITS ---
History of Present Illness History of Present Illness Date Patient Seen: 09/24/22 Time Patient Seen: 15:21 Chief complaint: unresponsive Narrative: This is a 81 F with PMH of DM1 on insulin pump with CGM, CKD stage IV (for >10 yrs), CAD with recent stents <1 year ago, chronic back pain with limited mobility, HTN, glaucoma, visiting [place]. About 3 days prior to admission, she started taking bactrim DS for a UTI (prescribed by ? PCP from [place], for 7 days) and after this began to feel nauseated with increased shortness of breath and weakness with decreased appetite. She presented to the emergency room yesterday, but with elevated creatinine she was recommended for transfer to a center with nephrology consultation. She was given diuresis overnight, troponin elevated but increased. She was requiring hi flow but had been reduced to a few L via NC this morning after diuresis. By my evaluation she was mid 90s on RA but desaturated with minimal movement and sitting in bed. Her repeat CXR today showed marked improvement in pulmonary edema. Echo showed a normal EF but with WMA, prior echo is not known, but suspected with declining troponin this is in setting of prior [place]. She was admitted to the hospitalist service here for further diuresis. [facility] Medical History CAD (coronary artery disease) CKD stage 4 due to type 1 diabetes mellitus Type 1 diabetes Surgical History S/P coronary artery stent placement Social History household members: spouse Smoking Status: Never smoker alcohol intake: never Meds Home Medications and Allergies Home Medications Medication Instructions Recorded Confirmed Type Imodium 2 mg PO QD-BID 09/23/22 09/23/22 History Systane Ultra 1 drp EYE-BOTH TID 09/23/22 09/24/22 History amitriptyline 25 mg tablet 50 mg PO ONCE PM 09/23/22 09/23/22 History amlodipine 10 mg tablet 10 mg PO DAILY 09/23/22 09/23/22 History aspirin 81 mg chewable tablet 81 mg PO DAILY 09/23/22 09/23/22 History atorvastatin 80 mg tablet 80 mg PO ONCE PM 09/23/22 09/23/22 History brimonidine 0.2 %-timolol 0.5 % 1 drp EYE-RIGHT BID 09/23/22 09/23/22 History eye drops clopidogrel 75 mg tablet 75 mg PO DAILY 09/23/22 09/23/22 History furosemide 40 mg tablet 40 mg PO Q2D 09/23/22 09/23/22 History latanoprost 0.005 % eye drops 1 drp EYE-RIGHT QPM 09/23/22 09/23/22 History levothyroxine 75 mcg tablet 75 mcg PO DAILY 09/23/22 09/23/22 History melatonin 5 mg tablet 5 mg PO BEDTIME PRN Insomnia 09/23/22 09/23/22 History metoprolol succinate 50 mg 50 mg PO BID 09/23/22 09/23/22 History tablet,extended release 24 hr Allergies Allergy/AdvReac Type Severity Reaction Status Date / Time ampicillin Allergy Intermediate Hives Verified 09/24/22 05:57 Review of Systems Review of Systems Narrative: All other systems reviewed with the patient and are negative unless otherwise stated. Exam Vital Signs (past 8 hours): - 09/24/22 07:30 09/24/22 08:00 09/24/22 08:00 Temperature Pulse Rate 76 77 Respiratory Rate 23 16 Blood Pressure 116/57 L Pulse Oximetry 98 96 Oxygen Delivery Method Oxygen Flow Rate 09/24/22 08:30 09/24/22 09:00 09/24/22 09:30 Temperature Pulse Rate 78 79 80 Respiratory Rate 19 19 18 Blood Pressure Pulse Oximetry 97 97 99 Oxygen Delivery Method Oxygen Flow Rate 09/24/22 10:00 09/24/22 10:01 09/24/22 10:01 Temperature Pulse Rate 81 82 Respiratory Rate 32 H 26 H Blood Pressure 109/82 Pulse Oximetry 97 97 Oxygen Delivery Method Oxygen Flow Rate 09/24/22 10:30 09/24/22 11:00 09/24/22 11:30 Temperature Pulse Rate 80 86 79 Respiratory Rate 31 H 20 19 Blood Pressure Pulse Oximetry 97 98 98 Oxygen Delivery Method Nasal Cannula Oxygen Flow Rate 3 09/24/22 09:00 09/24/22 12:00 Temperature 97.1 F L Pulse Rate 86 84 Respiratory Rate 22 17 Blood Pressure 128/63 Pulse Oximetry 97 Oxygen Delivery Method Oxygen Flow Rate 2 Fraction of Inspired Oxygen 50 SaO2/FiO2 Ratio 194 Oxygen Delivery Method Nasal Cannula Oxygen Flow Rate 2 Narrative Exam Narrative: General:? Patient is well developed and well nourished, in no distress at this time. HEENT:? Normocephalic, atraumatic, extraocular muscles intact, oral pharynx is clear and mucous membranes are moist. Neck: supple and symmetric, trachea is midline, no cervical adenopathy. Negative for JVD Chest:? Normal AP diameter and contour without kyphoscoliosis, no tachypnea, equal chest rise bilaterally. Lungs:? CTA b/l no wheezing rhonchi or rales. Cardio:?RRR no m/r/g. Abdomen: S NT ND. No CVA tenderness. Pump site without erythema, induration, or tenderness. Musculoskeletal:? Muscle strength and tone are equal within normal limits, no deformity. Extremities: trace bilateral lower extremity edema, no joint effusions. No cyanosis or clubbing. Skin:? Pale,? Warm to touch,dry and intact without rashes, ulcerations or petechiae.? Neuro:? Alert and orientated x3,? sensation to touch intact in all extremities, no gross deficits noted of cranial nerves. Psych:? Patient has a well-kept appearance, appropriate affect, mental status attitude thought context and judgment are appropriate for age. Objective ECG Impression: Normal sinus rhythm as interpreted by me. Labs 09/24/22 06:04 09/24/22 06:04 Labs: Laboratory Results - last 24 hr 09/23/22 09/23/22 09/23/22 04:00 16:20 16:20 WBC 5.8 RBC 2.66 L Hgb 8.9 L Hct 25.0 L MCV 93.9 MCH 33.5 MCHC 35.6 RDW 12.4 Plt Count 184 Neut % (Auto) 75.7 H Lymph % (Auto) 11.2 L [place] % (Auto) 12.0 Eos % (Auto) 0.6 L Baso % (Auto) 0.5 Neut # (Auto) 4400 Lymph # (Auto) 700 L [place] # (Auto) 700 Eos # (Auto) 0 Baso # (Auto) 0 ABG O2 Saturation 84 L* Sodium Potassium Chloride Carbon Dioxide BUN Creatinine Estimated GFR BUN/Creatinine Ratio Glucose Calcium Magnesium 2.3 Total Bilirubin AST ALT Alkaline Phosphatase Troponin I NT-Pro-B Natriuret Pep Total Protein Albumin Globulin Albumin/Globulin Ratio 09/23/22 09/24/22 09/24/22 16:20 06:04 06:04 WBC 4.8 RBC 2.96 L Hgb 10.0 L Hct 27.8 L MCV 94.1 MCH 33.8 MCHC 35.9 RDW 12.3 Plt Count 210 Neut % (Auto) 66.6 Lymph % (Auto) 16.7 L [place] % (Auto) 11.5 Eos % (Auto) 4.7 H Baso % (Auto) 0.5 Neut # (Auto) 3200 Lymph # (Auto) 800 L [place] # (Auto) 600 Eos # (Auto) 200 Baso # (Auto) 0 ABG O2 Saturation Sodium 132 L 134 L Potassium 4.4 3.9 Chloride 100 99 Carbon Dioxide 22 23 BUN 53 H 53 H Creatinine 4.14 H 3.92 H Estimated GFR 10 L 11 L BUN/Creatinine Ratio 12.8 13.5 Glucose 168 H 105 Calcium 8.4 8.5 Magnesium Total Bilirubin 0.4 0.5 AST 34 37 H ALT 25 26 Alkaline Phosphatase 113 114 Troponin I NT-Pro-B Natriuret Pep Total Protein 6.4 6.6 Albumin 3.6 3.7 Globulin 2.8 2.9 Albumin/Globulin Ratio 1.3 1.3 09/24/22 09/24/22 06:04 09:50 WBC RBC Hgb Hct MCV MCH MCHC RDW Plt Count Neut % (Auto) Lymph % (Auto) [place] % (Auto) Eos % (Auto) Baso % (Auto) Neut # (Auto) Lymph # (Auto) [place] # (Auto) Eos # (Auto) Baso # (Auto) ABG O2 Saturation Sodium Potassium Chloride Carbon Dioxide BUN Creatinine Estimated GFR BUN/Creatinine Ratio Glucose Calcium Magnesium Total Bilirubin AST ALT Alkaline Phosphatase Troponin I 0.061 H 0.052 H NT-Pro-B Natriuret Pep 8590 H Total Protein Albumin Globulin Albumin/Globulin Ratio Assessment & Plan Assessment & Plan narrative: 1. Acute diastolic heart failure with acute hypoxemic respiratory failure - unclear etiology of heart failure and volume overload at this time. GI symptoms attributable to bactrim, potassium is normal here. - continue diuresis, respiratory failure has rapidly improved since yesterday with diuresis. - no clear signs or symptoms of pneumonia, defer antibiotics at this time. Respiratory panel negative. - TTE with EF normal, with wall motion abnormalities but suspect given downtrending trop this is related to IL <1 year ago. Continue asa and plavix. - other possibility is CHUCKY leading to fluid retention, but baseline creatinine not known but reported to be around 4 where her labs are currently so this feels less likely. - ACS ruled out. - wean from O2 as tolerated, goal O2 90-96% while on supplemental therapy. 2. CKD stage IV - unknown baseline creatinine, improving creatinine thus far with diuresis. May be elevated from recent bactrim use as well - continue to follow, may be near baseline now 3. CAD with prior stents - continue asa and plavix, statin 4. type 1 diabetes with insulin pump - continue home insulin pump and CGM per hospital policy 5. HTN - continue home medications. 6. Glaucoma - continue home medications. 7. Hypothyroidism - continue home levothyroxine. 8. Recent reported UTI. - completed 3 days of bactrim. UA negative here, will stop antibiotics. 9. Myocardial injury - in setting of acute respiratory failure and volume overload. - downtrended, no further evaluation warranted. Code: Full, surrogate is patient's DVT: Lovenox renal dosing I have utilized all available immediate resources to obtain, update, or review the patient's current medications. Additional history obtained via discussion with ER provider. I have reviewed aamnda mcadams's documentation, labs, imaging, EKG personally. Discussed plan of care with patient. Quality VTE Deep Vein Thrombosis/Pulmonary Embolism Present on Admission: No
[2022-09-24] MEDS: FUROSEMIDE 40 MG/4 ML VIAL IV (16:03)
[2022-09-24] MEDS: INSULIN PUMP 1 REQUEST MISC (18:26)
[2022-09-24] MEDS: ATORVASTATIN 20 MG TABLET 80 MG PO (20:12)
[2022-09-24] MEDS: TIMOLOL 0.5% OPHTH 1 DROPS EYE-RIGHT (20:13)
[2022-09-24] MEDS: MELATONIN 3 MG TABLET PO (20:13)
[2022-09-24] MEDS: AMITRIPTYLINE 25 MG TABLET 50 MG PO (20:13)
[2022-09-24] MEDS: BRIMONIDINE 0.2% OPHTH 5 ML 1 DROPS EYE-RIGHT (20:14)
[2022-09-25 03:53] VITALS: BP 119/63; PULSE 91; RESP 18; TEMP 36; O2SAT 96
[2022-09-25] MEDS: INSULIN PUMP 1 REQUEST MISC (06:14)
[2022-09-25] MEDS: LEVOTHYROXINE 75 MCG TABLET PO (06:19)
[2022-09-25 06:49] LABS: Add Manual Diff / Slide Review NO; Basophils Absolute Auto 0 /uL (0-100); Basophils Percent Auto 0.7 % (0-2); Eosinophils Absolute Auto 300 /uL (0-450); Eosinophils Percent Auto 5.2 % (2-4); Hematocrit 29.3 % (36-46); Hemoglobin 10.3 g/dL (12.0-16.0); Lymphocytes Absolute Auto 800 /uL (1100-4500); Lymphocytes Percent Auto 16.1 % (25-40); Mean Corpuscular HGB Conc 35.1 % (30-36); Mean Corpuscular Hemoglobin 33.4 PG (26-34); Mean Corpuscular Volume 95.3 fL (80-100); Monocytes Absolute Auto 600 /uL (0-900); Monocytes Percent Auto 11.8 % (3-14); Neutrophils Absolute Auto 3300 /uL (1500-7000); Neutrophils Percent Auto 66.2 % (50-75); Platelet Count 240 X10^3/uL (150-400); Red Blood Cell Count 3.08 X10^6/uL (4.0-5.2); Red Cell Distribution Width 12.4 % (11.6-14.8); White Blood Cell Count 4.9 X10^3/uL (4.5-11.0)
[2022-09-25 06:54] LABS: BUN Creatinine Ratio 16.9 (6-22); Blood Urea Nitrogen 58 mg/dL (7-17); Calcium 8.5 mg/dL (8.4-10.2); Carbon Dioxide 25 mmol/L (22-32); Chloride 97 mmol/L (98-107); Estimated Glomerular Filt Rate 13 mL/min (>60); Glucose 127 mg/dL (80-110); HEMOLYSIS < 15 (0-50); Potassium 4.3 mmol/L (3.4-5.1); Sodium 131 mmol/L (137-145)
[2022-09-25 08:00] VITALS: BP 136/65; PULSE 92; RESP 16; TEMP 36.1; O2SAT 96
--- NOTE | 2022-09-25 08:35 | P.DS_ITS ---
History of Present Illness History of Present Illness Date Patient Seen: 09/25/22 Time Patient Seen: 08:35 Chief complaint: unresponsive Narrative: This is a 81 F with PMH of DM1 on insulin pump with CGM, CKD stage IV (for >10 yrs), CAD with recent stents <1 year ago, chronic back pain with limited mobility, HTN, glaucoma, visiting from [place]. About 3 days prior to admission, she started taking bactrim DS for a UTI (prescribed by ? PCP from [place], for 7 days) and after this began to feel nauseated with increased shortness of breath and weakness with decreased appetite. She presented to the emergency room yesterday, but with elevated creatinine she was recommended for transfer to a center with nephrology consultation. She was given diuresis overnight, troponin elevated but increased. She was requiring hi flow but had been reduced to a few L via NC this morning after diuresis. By my evaluation she was mid 90s on RA but desaturated with minimal movement and sitting in bed. Her repeat CXR today showed marked improvement in pulmonary edema. Echo showed a normal EF but with WMA, prior echo is not known, but suspected with declining troponin this is in setting of prior [place]. She was admitted to the hospitalist service here for further diuresis. Discharge Providers Provider Date of admission: 09/24/22 11:12 Discharge Date: 09/25/22 Consults: 09/24/22 15:22 Consult to Dietitian, Adult Routine Comment: Reason For Exam: DM1, insulin pump Discharge provider: Rex Boss DO Summary Hospital Course Discharge Diagnosis: 1. Acute diastolic heart failure with acute hypoxemic respiratory failure 2. CHUCKY on CKD stage IV 3. CAD with prior stents 4. type 1 diabetes with insulin pump 5. HTN 6. Glaucoma 7. Hypothyroidism 8. Recent reported UTI. 9. Myocardial injury Hospital Course: This is a 81 F with PMH of DM1 on insulin pump with CGM, CKD stage IV (for >10 yrs), CAD with recent stents <1 year ago, chronic back pain with limited mobility, HTN, glaucoma, visiting from [place]. About 3 days prior to admission, she started taking bactrim DS for a UTI (prescribed by ? PCP from [place], for 7 days) and after this began to feel nauseated with increased shortness of breath and weakness with decreased appetite. She was found to be markedly hypoxic, initially was on high flow oxygen, and was initially recomme nded for transfer. She began to improve with diuresis, and echocardiogram showed a normal EF with wall motion abnormalities. Given improvement in symptoms with downtrending troponin, this was thought to be secondary to recent [place] less than 1 year ago as no outside records are available for review. Her kidney function continued to improve with diuresis after admission to the floor, and the following day she was no longer requiring oxygen and was discharged home. She is recommended to continue furosemide daily for 1 week after discharge, then return to every other day dosing. Bactrim was recommended to be stopped. No other medication changes are recommended on discharge. Her baseline creatinine is reported as >4 per patient, however creatinine started there and continued to improve with diuresis to 3.43. Time Spent with Patient Time spent: Greater than 30 minutes Exam Vital Signs (past 8 hours): - 09/25/22 03:53 Temperature 96.8 F L Pulse Rate 91 H Respiratory Rate 18 Blood Pressure 119/63 Pulse Oximetry 96 Oxygen Flow Rate 1 Fraction of Inspired Oxygen 50 SaO2/FiO2 Ratio 194 Oxygen Delivery Method Nasal Cannula Oxygen Flow Rate 1 Narrative Exam Narrative: General:? Patient is well developed and well nourished, in no distress at this time. HEENT:? Normocephalic, atraumatic, extraocular muscles intact, oral pharynx is clear and mucous membranes are moist. Neck: supple and symmetric, trachea is midline, no cervical adenopathy. Negative for JVD Chest:? Normal AP diameter and contour without kyphoscoliosis, no tachypnea, equal chest rise bilaterally. Lungs:? CTA b/l no wheezing rhonchi or rales. Cardio:?RRR no m/r/g. Abdomen: S NT ND. No CVA tenderness. Pump site without erythema, induration, or tenderness. Musculoskeletal:? Muscle strength and tone are equal within normal limits, no deformity. Extremities: trace bilateral lower extremity edema, no joint effusions. No cyanosis or clubbing. Skin:? Pale,? Warm to touch,dry and intact without rashes, ulcerations or petechiae.? Neuro:? Alert and orientated x3,? sensation to touch intact in all extremities, no gross deficits noted of cranial nerves. Psych:? Patient has a well-kept appearance, appropriate affect, mental status attitude thought context and judgment are appropriate for age. Objective Labs 09/25/22 06:20 09/25/22 06:20 Labs: Laboratory Results - last 24 hr 09/24/22 09/25/22 09/25/22 09:50 06:20 06:20 WBC 4.9 RBC 3.08 L Hgb 10.3 L Hct 29.3 L MCV 95.3 MCH 33.4 MCHC 35.1 RDW 12.4 Plt Count 240 Neut % (Auto) 66.2 Lymph % (Auto) 16.1 L [place] % (Auto) 11.8 Eos % (Auto) 5.2 H Baso % (Auto) 0.7 Neut # (Auto) 3300 Lymph # (Auto) 800 L [place] # (Auto) 600 Eos # (Auto) 300 Baso # (Auto) 0 Sodium 131 L Potassium 4.3 Chloride 97 L Carbon Dioxide 25 BUN 58 H Creatinine 3.43 H Estimated GFR 13 L BUN/Creatinine Ratio 16.9 Glucose 127 H Calcium 8.5 Magnesium 2.0 Troponin I 0.052 H [facility] Medical History CAD (coronary artery disease) CKD stage 4 due to type 1 diabetes mellitus Type 1 diabetes Surgical History S/P coronary artery stent placement Social History household members: spouse Smoking Status: Never smoker alcohol intake: never Discharge Plan Discharge Plan Patient Disposition: Home Provider Discharge Comment: You were admitted to the hospital with shortness of breath, weakness. You had extra fluid on your lungs which was taken off with more of your home diuretic. Your heart was pumping normally on ultrasound. Continue furosemide every day for one week, then return to home dosing of every other day. Keep an eye out for symptoms of shortness of breath, abdominal bloating, or lower extremity swelling or weight gain for indications you may need to increase your home diuretic. Discharge orders & Medications Prescriptions: Continued amitriptyline 25 mg tablet 50 mg PO ONCE PM atorvastatin 80 mg tablet 80 mg PO ONCE PM melatonin 5 mg Tablet 5 mg PO BEDTIME PRN (Reason: Insomnia) furosemide 40 mg tablet 40 mg PO Q2D amlodipine 10 mg tablet 10 mg PO DAILY metoprolol succinate 50 mg tablet extended release 24 hr 50 mg PO BID levothyroxine 75 mcg tablet 75 mcg PO DAILY clopidogrel 75 mg tablet 75 mg PO DAILY brimonidine-timolol 0.2-0.5 % drops 1 drp EYE-RIGHT BID latanoprost 0.005 % drops 1 drp EYE-RIGHT QPM Systane Ultra 1 drp EYE-BOTH TID aspirin 81 mg Tablet,Chewable 81 mg PO DAILY Imodium 2 mg PO QD-BID Diet/Activity/Treatments Diet: Diet as Tolerated and Carb-consistent/Diabetic Activity: As tolerated no restrictions Visit Report/Discharge Packet Stand Alone Forms: Patient Portal/API, Stroke Signs & Symptoms Quality VTE Deep Vein Thrombosis/Pulmonary Embolism Present on Admission: No
[2022-09-25 08:43] VITALS: BP 138/69; PULSE 96
[2022-09-25] MEDS: METOPROLOL ER 50 MG TABLET PO (08:43)
[2022-09-25] MEDS: ASPIRIN 81 MG CHEW TAB PO (08:43)
[2022-09-25] MEDS: CLOPIDOGREL 75 MG TABLET PO (08:43)
[2022-09-25] MEDS: FUROSEMIDE 40 MG/4 ML VIAL IV (08:44)
--- NOTE | 2022-09-25 09:10 | CM.DANOTE ---
DCP: Chart review for case, met with patient at bedside, they agree to case management assessment. Completed DCP assessment based on information available. Patient is a 81 year old admitted for acute heart failure/hypoxia. She relays their annual journey between homes in [place], [place] via RV motor home (currently staying at [facility]). 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 He relays that she has heart, kidney and ?sugar? doctors in [place] and can communicate via video consult if needed. PCP: Jimi Leonard Payer: Medicare DME: [facility] DCP: Back to own RV, staying locally. Carola Burch RN, CM Discharge Planning/Care Management CM Discharge Assessment Start: 09/25/22 09:04 Freq: Status: Active Protocol: Document 09/25/22 09:05 SALAS (Rec: 09/25/22 09:05 SALAS [id number]) Discharge Planning Assessment Assigned Magazine Grinder Loader Carola Burch RN, CM Advance Directives? Yes Advance Directives on File No History Provided By Patient,Family Member,Medical Record Has Patient been admitted in last 30 No days? Prior Living Arrangements RV Household Members spouse Type of transporation used prior to Relies on Others admit Independent with ADL's Yes Is patient alert and oriented? Yes Needs Assistance With Home Chores / Shopping Caregiver for Another No DME Already Rented / Owned Cane Barriers to Discharge No Referrals Initiated None needed Whiteboard Updated in Patient Room with Yes name and ext. # of Magazine Grinder Loader Review Status In Process Next Review Type Continued Stay Review
== END 2022-09-25 12:28 | disposition home or self-care (01) | DRG 291 ==
LOC: ED 18:18 → AC 09-24 11:12
PROVIDERS: Emergency Medicine; Admitting Provider Internal Medicine; Emergency Provider Emergency Medicine; Referring Provider Emergency Medicine; Visit Provider Internal Medicine
DX: I13.0 Hypertensive heart and chronic kidney disease with heart failure and stage 1 through stage 4 chronic kidney disease, or unspecified chronic kidney disease (principal); I50.31 Acute diastolic (congestive) heart failure; J96.01 Acute respiratory failure with hypoxia; N18.4 Chronic kidney disease, stage 4 (severe); E10.22 Type 1 diabetes mellitus with diabetic chronic kidney disease; I25.10 Atherosclerotic heart disease of native coronary artery without angina pectoris; H40.9 Unspecified glaucoma; E03.9 Hypothyroidism, unspecified; I5A Non-ischemic myocardial injury (non-traumatic); Z95.5 Presence of coronary angioplasty implant and graft; Z96.41 Presence of insulin pump (external) (internal)
CPT/HCPCS: 36415; 36600; 70450; 71045; 80048; 80053; 81001; 82550; 82805; 82962; 83605; 83735; 83880; 84145; 84484; 85025; 85379; 85610; 85730; 87040; 87633; 93005; 93010; 93306; 96365; 96366; 96372; 96375; 99285; 99291; J1200; J1644; J1940